=== PATIENT | male | born 2000 | race African-American/Black ===

== ENCOUNTER 2019-06-09 21:36 | Emergency (ER) | payer SELFPAY ==
[2019-06-09] MEDS ORDERED: IBUPROFEN 400 MG TAB ONE (22:36)
[2019-06-09] MEDS ORDERED: NA CHLORIDE 0.9% 1,000 ML ONE (22:36)
[2019-06-09 22:48] LABS: Absolute Lymphocytes (CBC) 3.2 K/uL (0.7-4.9); Basophils % 0.8 % (0-1.3); Hematocrit 43.3 % (39.6-49.0); Lymphocytes % 36.7 % (15.3-44.8); MPV 7.6 fL (7.6-11.3)
[2019-06-09 22:56] LABS: Protime INR 1.16
[2019-06-09 23:14] LABS: ALT/SGPT 44 U/L (12-78); AST/SGOT 26 U/L (15-37); Albumin 3.9 g/dL (3.4-5.0); Alkaline Phosphatase 80 U/L (45-117); BUN Blood Urea Nitrogen 14 mg/dL (7-18); Bicarbonate 28 mmol/L (21-32); Bilirubin Direct 0.1 mg/dL (0-0.2); Bilirubin Total 0.5 mg/dL (0.2-1.0); Glucose Level 80 mg/dL (74-106); Potassium 3.7 mmol/L (3.5-5.1); Protein, Total 8.6 g/dL (6.4-8.2); Sodium Level 140 mmol/L (136-145)
[2019-06-10 01:30] LABS: Urine Blood NEGATIVE (NEG); Urine Glucose NEGATIVE (NEG); Urine Protein NEGATIVE (NEG); Urine Specific Gravity >1.030 (1.005-1.030); Urine pH 6.5 (5.0-7.0)
[2019-06-10 01:32] LABS: Barbiturates NEGATIVE (NEGATIVE); Benzodiazepines NEGATIVE (NEGATIVE); Cocaine NEGATIVE (NEGATIVE); METHAMPHETAM NEGATIVE (NEGATIVE); Methadone NEGATIVE (NEGATIVE); Opiates NEGATIVE (NEGATIVE); Phencyclidine NEGATIVE (NEGATIVE); THC Cannibis NEGATIVE (NEGATIVE)
--- NOTE | 2019-06-10 01:45 | EDPHYS ---
Physician Documentation [facility] Name: Poncho Roque Age: 18 yrs Sex: Male : 2000 Arrival Date: 06/09/2019 Time: 21:38 Bed 18 Private MD: ED Physician Socrates Mustafa HPI: 06/08 23:52 This 18 yrs old Black Male presents to ER via EMS with complaints of Syncope. kdr 23:52 The patient has experienced syncope, became unresponsive, collapsed. Onset: The kdr symptoms/episode began/occurred suddenly, just prior to arrival. Duration: This was a single episode, that lasted an unknown period of time. Context: the episode(s) was witnessed, by co-worker(s), occurred at work, occurred while the patient was working, Just prior to the episode the patient experienced dizziness, weakness, Dry mouth. Associated injury: The patient did not suffer any apparent associated injury. Associated signs and symptoms: Pertinent positives: headache, Photophobia. Current symptoms: headache, that is mild, visual disturbance, Photophobia. The patient has experienced similar episodes in the past, multiple times, The last time was a few years ago - there is a past record of the visit in our EMR. He was discharged with follow-up which he did not do stating that he couldn't afford it.. The patient has not recently seen a physician. Historical: - Allergies: 21:54 SEAFOOD; ah 21:54 Shellfish Containing Products; - Home Meds: 21:54 None [Active]; - PMHx: 21:54 Anxiety; - PSHx: 21:54 None; - Immunization history:: Adult Immunizations unknown, Flu vaccine is not up to date. - Social history:: Smoking status: Patient reports the use of cigarette tobacco products, Reported history of juuling and/or vaping. Patient uses alcohol, street drugs, marijuana. ROS: 23:52 Constitutional: Negative for fever, chills, and weight loss, Eyes: Negative for injury, kdr pain, redness, and discharge, Neck: Negative for injury, pain, and swelling, Cardiovascular: Negative for chest pain, palpitations, and edema, Respiratory: Negative for shortness of breath, cough, wheezing, and pleuritic chest pain, Abdomen/GI: Negative for abdominal pain, nausea, vomiting, diarrhea, and constipation, Back: Negative for injury and pain, : Negative for injury, bleeding, discharge, and swelling, MS/Extremity: Negative for injury and deformity, Skin: Negative for injury, rash, and discoloration, Psych: Negative for depression, anxiety, suicide ideation, homicidal ideation, and hallucinations, Allergy/Immunology: Negative for hives, rash, and allergies, Endocrine: Negative for neck swelling, polydipsia, polyuria, polyphagia, and marked weight changes, Hematologic/Lymphatic: Negative for swollen nodes, abnormal bleeding, and unusual bruising. 23:52 Neuro: Positive for dizziness, headache, loss of consciousness, syncope, weakness, Negative for Exam: 23:52 Constitutional: This is a well developed, well nourished patient who is awake, alert, kdr and in no acute distress. Head/Face: Normocephalic, atraumatic. Eyes: Pupils equal round and reactive to light, extra-ocular motions intact. Lids and lashes normal. Conjunctiva and sclera are non-icteric and not injected. Cornea within normal limits. Periorbital areas with no swelling, redness, or edema. Neck: Trachea midline, no thyromegaly or masses palpated, and no cervical lymphadenopathy. Supple, full range of motion without nuchal rigidity, or vertebral point tenderness. No Meningismus. Chest/axilla: Normal chest wall appearance and motion. Nontender with no deformity. No lesions are appreciated. Cardiovascular: Regular rate and rhythm with a normal S1 and S2. No gallops, murmurs, or rubs. Normal PMI, no JVD. No pulse deficits. Respiratory: Lungs have equal breath sounds bilaterally, clear to auscultation and percussion. No rales, rhonchi or wheezes noted. No increased work of breathing, no retractions or nasal flaring. Abdomen/GI: Soft, non-tender, with normal bowel sounds. No distension or tympany. No guarding or rebound. No evidence of tenderness throughout. Back: No spinal tenderness. No costovertebral tenderness. Full range of motion. Skin: Warm, dry with normal turgor. Normal color with no rashes, no lesions, and no evidence of cellulitis. MS/ Extremity: Pulses equal, no cyanosis. Neurovascular intact. Full, normal range of motion. Neuro: Awake and alert, GCS 15, oriented to person, place, time, and situation. Cranial nerves II-XII grossly intact. Motor strength 5/5 in all extremities. Sensory grossly intact. Cerebellar exam normal. Normal gait. Psych: Awake, alert, with orientation to person, place and time. Behavior, mood, and affect are within normal limits. Vital Signs: 21:39 BP 127 / 55; Pulse 75; Resp 16; Pulse Ox 100% ; Height 5 ft. 11 in. (180.34 cm); Pain ah 9/10; 21:55 Temp 97.1; ah 23:05 BP 129 / 66; Pulse 82; Resp 18; Pulse Ox 100% ; ea 05 00:08 BP 129 / 61; Pulse 64; Resp 18; Pulse Ox 99% on R/A; ea 01:15 BP 120 / 70; Pulse 68; Resp 18; Pulse Ox 99% on R/A; ea MDM: 01:43 Patient medically screened. kdr 03:55 Data reviewed: vital signs, nurses notes, lab test result(s), EKG, radiologic studies. kdr Counseling: I had a detailed discussion with the patient and/or guardian regarding: the historical points, exam findings, and any diagnostic results supporting the discharge/admit diagnosis, lab results, radiology results, the need for outpatient follow up. 06/08 21:50 Order name: Acetaminophen; Complete Time: 23:49 kdr 06/08 21:50 Order name: Basic Metabolic Panel; Complete Time: 23:49 kdr 06/08 21:50 Order name: CBC with Diff; Complete Time: 23:49 kdr 06/08 21:50 Order name: ETOH Level; Complete Time: 23:49 kdr 06/08 21:50 Order name: Hepatic Function; Complete Time: 23:49 kdr 06/08 21:50 Order name: PT-INR; Complete Time: 23:49 kdr 06/08 21:50 Order name: Ptt, Activated; Complete Time: 23:49 kdr 06/08 21:50 Order name: Salicylate; Complete Time: 23:49 kdr 06/08 21:50 Order name: Urine Drug Screen; Complete Time: 01:43 kdr 06/08 22:20 Order name: CT Head C Spine kdr 06/08 23:33 Order name: Abdomen EDMS 06/09 01:20 Order name: Urine Dipstick--Ancillary (enter results); Complete Time: 01:43 mw2 06/08 21:50 Order name: EKG; Complete Time: 21:51 kdr 06/08 21:50 Order name: EKG - Nurse/Tech; Complete Time: 22:50 kdr 06/08 21:50 Order name: IV Saline Lock; Complete Time: 22:28 kdr 06/08 21:50 Order name: Labs collected and sent; Complete Time: 22:28 kdr 06/08 21:50 Order name: Urine Dipstick-Ancillary (obtain specimen); Complete Time: 01:17 kdr Administered Medications: 06/08 22:34 Drug: NS 0.9% 1000 ml Route: IV; Rate: 1 bolus; Site: right antecubital; ea 06/09 01:57 Follow up: Response: No adverse reaction; IV Status: Completed infusion; IV Intake: ea 600ml 06/08 22:34 Drug: Ibuprofen 800 mg Route: PO; ea 06/09 00:28 Follow up: Response: No adverse reaction ea Disposition: 06/10/19 01:43 Discharged to Home. Impression: Syncope and collapse. - Condition is Stable. - Discharge Instructions: Syncope, [id number]. - Medication Reconciliation Form, Thank You Letter form. - Follow up: Private Physician; When: 2 - 3 days; Reason: If symptoms return, Further diagnostic work-up, Recheck today's complaints, Continuance of care, Re-evaluation by your physician. - Problem is an acute exacerbation. - Symptoms are resolved. Signatures: Dispatcher [employer] [facility] Socrates Mustafa MD MD kdr Antunez, Elena, RN RN ea Harris, Amy RN RN Corrections: (The following items were deleted from the chart) 06/08 23:33 22:21 Abdomen Pelvis W Con+CT.RAD.BRZ ordered. [facility] 06/09 01:56 01:43 06/10/2019 01:43 Discharged to Home. Impression: Syncope and collapse. Condition ea is Stable. Forms are Medication Reconciliation Form, Thank You Letter, Antibiotic Education, Prescription Opioid Use. Follow up: Private Physician; When: 2 - 3 days; Reason: If symptoms return, Further diagnostic work-up, Recheck today's complaints, Continuance of care, Re-evaluation by your physician. Problem is an acute exacerbation. Symptoms are resolved. kdr
--- NOTE | 2019-06-10 01:45 | ER ---
Nurse's Notes [facility] Name: Poncho Roque Age: 18 yrs Sex: Male : 2000 Arrival Date: 06/09/2019 Time: 21:38 Bed 18 Private MD: Diagnosis: Syncope and collapse Presentation: 06/08 21:39 Chief complaint: Patient states: he took the trash out at work and smoked a cigarette and when he came back in the building he was dizzy and blacked out. Pt c/o mouth numbness. Vitals per EMS 140/80, 80, 98%, BS 118, afebrile. Coronavirus screen: Proceed with normal triage. Patient denies a cough. Patient denies shortness of breath or difficulty breathing. Patient denies measured and/or subjective temperature greater than 100.4F prior to today's visit. Patient denies travel on a cruise ship or to a country the [facility] currently lists as an affected area. Patient denies contact with known and/or suspected case of COVID-19. Ebola Screen: No symptoms or risks identified at this time. Initial Sepsis Screen: Does the patient meet any 2 criteria? No. Patient's initial sepsis screen is negative. Does the patient have a suspected source of infection? No. Patient's initial sepsis screen is negative. Risk Assessment: Do you want to hurt yourself or someone else? Patient reports no desire to harm self or others. Onset of symptoms was June 09, 2019. 21:39 Method Of Arrival: EMS: [facility] 21:39 Acuity: LEIA 3 Triage Assessment: 21:55 General: Appears. Historical: - Allergies: 21:54 SEAFOOD; 21:54 Shellfish Containing Products; - Home Meds: 21:54 None [Active]; - PMHx: 21:54 Anxiety; - PSHx: 21:54 None; - Immunization history:: Adult Immunizations unknown, Flu vaccine is not up to date. - Social history:: Smoking status: Patient reports the use of cigarette tobacco products, Reported history of juuling and/or vaping. Patient uses alcohol, street drugs, marijuana. Screenin:54 Abuse screen: Denies threats or abuse. Nutritional screening: No deficits noted. Tuberculosis screening: No symptoms or risk factors identified. Fall Risk None identified. Assessment: 22:20 General: Appears in no apparent distress. Pain: Complains of pain in abdomen. Neuro: ea Level of Consciousness is awake, alert, obeys commands, Oriented to person, place, time, situation. Cardiovascular: Patient's skin is warm and dry. Derm: Skin is pink, warm \T\ dry. Musculoskeletal: Circulation, motion, and sensation intact. 23:50 Reassessment: Patient and/or family updated on plan of care and expected duration. Pain ea level reassessed. Patient is alert, oriented x 3, equal unlabored respirations, skin warm/dry/pink. Returned from CT. 06/09 00:30 Reassessment: Patient and/or family updated on plan of care and expected duration. Pain ea level reassessed. Patient is alert, oriented x 3, equal unlabored respirations, skin warm/dry/pink. 01:07 Reassessment: Patient and/or family updated on plan of care and expected duration. Pain ea level reassessed. Patient is alert, oriented x 3, equal unlabored respirations, skin warm/dry/pink. 01:55 Reassessment: Patient and/or family updated on plan of care and expected duration. Pain ea level reassessed. Patient is alert, oriented x 3, equal unlabored respirations, skin warm/dry/pink. Discharge instruction given to patient, verbalized the understanding of instruction. Pt left ED ambulatory accompanied by mother. Vital Signs: 06/08 21:39 BP 127 / 55; Pulse 75; Resp 16; Pulse Ox 100% ; Height 5 ft. 11 in. (180.34 cm); Pain ah 9/10; 21:55 Temp 97.1; ah 23:05 BP 129 / 66; Pulse 82; Resp 18; Pulse Ox 100% ; ea 06/09 00:08 BP 129 / 61; Pulse 64; Resp 18; Pulse Ox 99% on R/A; ea 01:15 BP 120 / 70; Pulse 68; Resp 18; Pulse Ox 99% on R/A; ea ED Course: 06/08 21:38 Patient arrived in ED. cf2 21:48 Socrates Mustafa MD is Attending Physician. kdr 21:52 Triage completed. ah 22:20 Arm band placed on right wrist. Patient placed in an exam room, on a stretcher, on ea pulse oximetry. 22:20 Patient has correct armband on for positive identification. Bed in low position. Call ea light in reach. Side rails up X2. 22:28 Katy Hyde, RN is Primary Nurse. ea 22:28 Inserted saline lock: 22 gauge in right antecubital area, using aseptic technique. ea Blood collected. 23:05 Radiology exam delayed due to lab results not completed at this time. (BUN/Creatinine). kw1 06/09 00:09 CT Head C Spine In Process Unspecified. EDMS 00:19 Abdomen In Process Unspecified. EDMS 01:27 No provider procedures requiring assistance completed. ea 01:50 IV discontinued, intact, bleeding controlled, No redness/swelling at site. Pressure ea dressing applied. Administered Medications: 06/08 22:34 Drug: NS 0.9% 1000 ml Route: IV; Rate: 1 bolus; Site: right antecubital; ea 06/09 01:57 Follow up: Response: No adverse reaction; IV Status: Completed infusion; IV Intake: ea 600ml 06/08 22:34 Drug: Ibuprofen 800 mg Route: PO; ea 06/09 00:28 Follow up: Response: No adverse reaction ea Intake: 01:57 IV: 600ml; Total: 600ml. ea Outcome: 01:43 Discharge ordered by . kdr 01:56 Discharged to home ambulatory, with family. ea 01:56 Condition: stable 01:56 Discharge instructions given to patient, Instructed on discharge instructions, follow up and referral plans. Demonstrated understanding of instructions, follow-up care. 01:56 Patient left the ED. ea Signatures: Dispatcher [employer] Scorates Villalobos MD MD kdr Antunez, Elena, RN RN Jeannette Limon kw1 Bethany Matos cf2 Val Barnes, RN RN
[2019-06-10 02:21] VITALS: TEMP 97.1
[2019-06-10 02:24] VITALS: O2SAT 99
[2019-06-10 02:26] VITALS: BP 120/70
--- NOTE | 2019-06-10 09:44 | EKG ---
Test Date: 2019-06-09 Test Time: 22:47:19 Net Mender: MIL MEASUREMENT RESULTS: Intervals: Rate: 73 LA: 158 QRSD: 96 QT: 378 QTc: 416 Burney: P: 32 LA: 158 QRS: 59 T: 23 INTERPRETIVE STATEMENTS: Normal sinus rhythm Electronically Signed On 06-10-19 09:44:13 CDT by Angel Boyle
--- NOTE | 2019-06-10 11:06 | RAD REPORT ---
EXAM DESCRIPTION: CT - [id number] - 06/10/2019 5:42 am CLINICAL HISTORY: Headache;Pain COMPARISON: None. TECHNIQUE: CT Head and Cervical spine WO contrast on 06/09/2019 10:20 PM CDT This exam was performed according to our departmental dose-optimization program, which includes autom ated exposure control, adjustment of the mA and/or kV according to patient size and/or use of iterati ve reconstruction technique. FINDINGS: Brain: There is no acute hemorrhage, mass effect or midline shift. Cabral-white differentiation is pres erved. There is no hydrocephalus. There is no significant volume loss for age. The calvarium is intact. Orbits and globes are unremarkable. Right frontal sinus is opacified. Mastoi d air cells are clear. Cervical Spine: There is no acute fracture. Alignment is anatomic. Disc spaces are maintained. Vertebral body heights are preserved. Soft tissues are unremarkable. IMPRESSION: No acute postraumatic findings. Electronically signed by: Elmo Glover MD 06/10/2019 12:15 AM CDT Due to temporary technical issues with the PACS/Fluency reporting system, reports are being signed by the in house radiologist as a courtesy to ensure prompt reporting. The interpreting radiologist is f ully responsible for the content of the report.
--- NOTE | 2019-06-10 11:23 | RAD REPORT ---
EXAM DESCRIPTION: CT - Abdomen Pelvis Wo Contrast - 06/10/2019 5:42 am CLINICAL HISTORY: ABD PAIN COMPARISON: None. TECHNIQUE: CT ABDOMEN PELVIS WITHOUT IV CONTRAST on 06/09/2019 10:20 PM CDT This exam was performed according to our departmental dose-optimization program, which includes autom ated exposure control, adjustment of the mA and/or kV according to patient size and/or use of iterati ve reconstruction technique. FINDINGS: Lower lungs are clear. Abdomen: Liver is mildly fatty in attenuation. There is no biliary dilatation. Gallbladder is normal in appearance. The pancreas and spleen are normal in appearance. The adrenal glands and kidneys are u nremarkable. Abdominal aorta is normal in course and caliber without aneurysm. There is no free air. There is no r etroperitoneal adenopathy. Pelvis: There is no bowel obstruction. Urinary bladder is unremarkable. There is no free fluid. Appen shobha is normal. Skeleton: There are no acute osseous findings. No suspicious bony lesions. IMPRESSION: No acute process. Electronically signed by: Elmo Glover MD 06/10/2019 12:24 AM CDT Due to temporary technical issues with the PACS/Fluency reporting system, reports are being signed by the in house radiologist as a courtesy to ensure prompt reporting. The interpreting radiologist is f ully responsible for the content of the report.
== END 2019-06-10 01:56 | disposition home or self-care (01) ==
LOC: ER 21:36
DX: R55 Syncope and collapse (principal); R51 Headache; W19.XXXA Unspecified fall, initial encounter; Y93.89 Activity, other specified; Y92.89 Other specified places as the place of occurrence of the external cause; Y99.8 Other external cause status; F17.210 Nicotine dependence, cigarettes, uncomplicated; Z91.013 Allergy to seafood
CPT/HCPCS: 36415; 70450; 72125; 74176; 80048; 80076; 80307; 80320; 80329; 81003; 85025; 85610; 85730; 93005; 96360; 96361; 99284; J7030

== ENCOUNTER 2019-07-05 14:39 | Emergency (ER) | payer SELFPAY ==
[2019-07-05 16:18] VITALS: BP 128/81; TEMP 98.6; O2SAT 99
--- NOTE | 2019-07-11 13:26 | ER ---
Nurse's Notes [facility] Name: Poncho Roque Age: 18 yrs Sex: Male : 2000 Arrival Date: 07/05/2019 Time: 14:45 Bed 23 Private MD: Diagnosis: Acute pharyngitis Presentation: 07/04 15:04 Chief complaint: Patient states: sore throat X 1 week, no fever, also hands are iw shaking. Coronavirus screen: Proceed with normal triage. Patient denies a cough. Patient denies shortness of breath or difficulty breathing. Patient denies measured and/or subjective temperature greater than 100.4F prior to today's visit. Patient denies travel on a cruise ship or to a country the [facility] currently lists as an affected area. Patient denies contact with known and/or suspected case of COVID-19. Ebola Screen: Patient negative for fever greater than or equal to 101.5 degrees Fahrenheit, and additional compatible Ebola Virus Disease symptoms Patient denies exposure to infectious person. Patient denies travel to an Ebola-affected area in the 21 days before illness onset. No symptoms or risks identified at this time. Initial Sepsis Screen: Does the patient meet any 2 criteria? No. Patient's initial sepsis screen is negative. Does the patient have a suspected source of infection? No. Patient's initial sepsis screen is negative. Risk Assessment: Do you want to hurt yourself or someone else? Patient reports no desire to harm self or others. Onset of symptoms was June 28, 2019. 15:04 Method Of Arrival: Ambulatory iw 15:04 Acuity: LEIA 4 iw Historical: - Allergies: 15:06 SEAFOOD; iw 15:06 Shellfish Containing Products; iw - Home Meds: 15:06 None [Active]; iw - PMHx: 15:06 Anxiety; iw - PSHx: 15:06 None; iw - Immunization history:: Adult Immunizations not up to date. - Social history:: Smoking status: Patient reports the use of cigarette tobacco products, smokes one-half pack cigarettes per day. Vital Signs: 15:04 BP 128 / 81; Pulse 85; Resp 16; Temp 98.6; Pulse Ox 99% on R/A; Weight 108.86 kg; Pain iw 11/18; ED Course: 14:45 Patient arrived in ED. as 15:05 Triage completed. iw 15:06 Arm band placed on. iw 15:28 Neo Garcia NP is PHCP. pm1 15:28 Cesario Rivas MD is Attending Physician. pm1 15:38 Val Barnes, RN is Primary Nurse. Administered Medications: No medications were administered Outcome: 15:46 Discharge ordered by MD. pm1 15:55 Discharged to home ambulatory. 15:55 Condition: good 15:55 Discharge instructions given to patient, Instructed on discharge instructions, follow up and referral plans. Demonstrated understanding of instructions, follow-up care. 15:56 Patient left the ED. Signatures: Cecelia Florian Irene, RN RN Neo Garcia NP [employer] pm1 Val Barnes, RN RN
--- NOTE | 2019-07-11 13:26 | EDPHYS ---
Physician Documentation [facility] Name: Poncho Roque Age: 18 yrs Sex: Male : 2000 Arrival Date: 07/05/2019 Time: 14:45 Bed 23 Private MD: ED Physician Cesairo Rivas HPI: 07/04 15:31 This 18 yrs old Black Male presents to ER via Ambulatory with complaints of Sore Throat.pm1 15:31 The patient presents with sore throat. The patient describes throat pain as scratchy. pm1 Onset: The symptoms/episode began/occurred 1 week(s) ago. Severity of symptoms: in the emergency department the symptoms are unchanged. Modifying factors: The symptoms are alleviated by nothing, the symptoms are aggravated by swallowing, Patient's oral intake status: good unaware of sick contact. Associated signs and symptoms: Pertinent negatives chest pain, cough, earache, fever, flu-like symptoms, headache, sore throat, vomiting. The patient has not recently seen a physician. Patient reports that both his hands were shaking but has resolved. Historical: - Allergies: 15:06 SEAFOOD; iw 15:06 Shellfish Containing Products; iw - Home Meds: 15:06 None [Active]; iw - PMHx: 15:06 Anxiety; iw - PSHx: 15:06 None; iw - Immunization history:: Adult Immunizations not up to date. - Social history:: Smoking status: Patient reports the use of cigarette tobacco products, smokes one-half pack cigarettes per day. ROS: 15:31 Constitutional: Negative for fever, chills, and weight loss, Eyes: Negative for injury, pm1 pain, redness, and discharge. 15:31 Neck: Negative for injury, pain, and swelling, Cardiovascular: Negative for chest pain, palpitations, and edema, Respiratory: Negative for shortness of breath, cough, wheezing, and pleuritic chest pain, Abdomen/GI: Negative for abdominal pain, nausea, vomiting, diarrhea, and constipation, Back: Negative for injury and pain, MS/Extremity: Negative for injury and deformity, Skin: Negative for injury, rash, and discoloration, Neuro: Negative for headache, weakness, numbness, tingling, and seizure, bilateral hand shaking resolved 15:31 ENT: Positive for sore throat, Negative for drainage from ear(s), ear pain, Teeth pain rhinorrhea, sinus congestion, sinus pain, sore throat, dental pain, difficulty swallowing, difficulty handling secretions, hoarseness. Exam: 15:31 Constitutional: This is a well developed, well nourished patient who is awake, alert, pm1 and in no acute distress. Head/Face: Normocephalic, atraumatic. 15:31 Neck: Trachea midline, no thyromegaly or masses palpated, and no cervical lymphadenopathy. Supple, full range of motion without nuchal rigidity, or vertebral point tenderness. No Meningismus. Chest/axilla: Normal chest wall appearance and motion. Nontender with no deformity. No lesions are appreciated. 15:31 Back: No spinal tenderness. No costovertebral tenderness. Full range of motion. Skin: Warm, dry with normal turgor. Normal color with no rashes, no lesions, and no evidence of cellulitis. MS/ Extremity: Pulses equal, no cyanosis. Neurovascular intact. Full, normal range of motion. 15:31 ENT: External ear(s): are unremarkable, Ear canal(s): are normal, TM's: are normal, Nose: is normal, Mouth: is normal, no gum abnomalities, no lip abnormalities, no mucosal abnormalities, no tongue abnormalities, Posterior pharynx: Airway: normal, no evidence of obstruction, patent, Tonsils: bilaterally enlarged, with erythema, erythema, is not appreciated, exudate, is not appreciated, peritonsillar mass, is not appreciated. 15:31 Cardiovascular: Exam negative for acute changes, Rate: normal, Rhythm: regular, Pulses: no pulse deficits are appreciated. 15:31 Respiratory: Exam negative for acute changes, respiratory distress, shortness of breath. 15:31 Abdomen/GI: Exam negative for acute changes, Inspection: abdomen appears normal, Palpation: abdomen is soft and non-tender, in all quadrants, mass, is not appreciated, rebound tenderness, is not appreciated. 15:31 Neuro: Exam negative for acute changes, Orientation: is normal, Mentation: is normal, Motor: is normal, Sensation: is normal, no obvious gross deficits. Vital Signs: 15:04 BP 128 / 81; Pulse 85; Resp 16; Temp 98.6; Pulse Ox 99% on R/A; Weight 108.86 kg; Pain iw 10/10; MDM: 15:28 Patient medically screened. pm1 15:43 ED course: Patient reports both of his hands were shaking at work and his boss thought pm1 that he was having a seizure. Patient offered further evaluation of hand shaking, such as work up for seizure/tremor, but he refused since they stopped shaking. 15:45 Data reviewed: vital signs. Data interpreted: Pulse oximetry: on room air is 99 %. pm1 Interpretation: normal. 15:45 Counseling: I had a detailed discussion with the patient and/or guardian regarding: the pm1 historical points, exam findings, and any diagnostic results supporting the discharge/admit diagnosis, lab results, the need for outpatient follow up, to return to the emergency department if symptoms worsen or persist or if there are any questions or concerns that arise at home. 07/04 15:06 Order name: Strep; Complete Time: 15:45 07/04 15:32 Order name: Throat Culture EDMS Administered Medications: No medications were administered Disposition: 16:21 Co-signature as Attending Physician, Cesario Rivas MD. rn Disposition: 07/05/19 15:46 Discharged to Home. Impression: Acute pharyngitis. - Condition is Stable. - Discharge Instructions: Pharyngitis. - Medication Reconciliation Form, Thank You Letter, Antibiotic Education, Prescription Opioid Use form. - Follow up: Emergency Department; When: As needed; Reason: Worsening of condition. Follow up: Private Physician; When: 2 - 3 days; Reason: Recheck today's complaints, Continuance of care, Re-evaluation by your physician. - Problem is new. - Symptoms have improved. Signatures: Dispatcher [employer] EDMS Albina James RN RN Cesario Rivas MD MD rn Marinas, Patrick, NP [employer] pm1 Val Barnes RN RN Corrections: (The following items were deleted from the chart) 15:56 15:46 07/05/2019 15:46 Discharged to Home. Impression: Acute pharyngitis. Condition is ah Stable. Forms are Medication Reconciliation Form, Thank You Letter, Antibiotic Education, Prescription Opioid Use. Follow up: Emergency Department; When: As needed; Reason: Worsening of condition. Follow up: Private Physician; When: 2 - 3 days; Reason: Recheck today's complaints, Continuance of care, Re-evaluation by your physician. Problem is new. Symptoms have improved. pm1
== END 2019-07-05 15:56 | disposition home or self-care (01) ==
LOC: ER 14:39
DX: J02.9 Acute pharyngitis, unspecified (principal); F17.210 Nicotine dependence, cigarettes, uncomplicated; Z91.013 Allergy to seafood
CPT/HCPCS: 87070; 87081; 99281

== ENCOUNTER 2020-04-02 18:51 | Emergency (ER) | payer SELFPAY ==
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
[2020-04-02] MEDS ORDERED: KETOROLAC 30 MG/ML INJ ONE (20:30)
--- NOTE | 2020-04-02 20:42 | RAD REPORT ---
EXAM DESCRIPTION: RAD - Foot Right 3 View - 04/02/2020 8:30 pm CLINICAL HISTORY: Right foot pain FINDINGS: No fracture or dislocation is seen No radiopaque foreign body visualized
--- NOTE | 2020-04-02 20:47 | ER ---
Nurse's Notes [facility] Name: Poncho Roque Age: 19 yrs Sex: Male : 2000 Arrival Date: 04/02/2020 Time: 18:54 Bed 10 Private MD: Diagnosis: Cellulitis of right lower limb Presentation: 04/02 19:16 Chief complaint: Patient states: Laceration to bottom of Right foot (heel area), ll1 noticed today. States he doesn't know when the laceration happened. No active bleeding. Coronavirus screen: Client denies travel out of the [place] in the last 14 days. At this time, the client does not indicate any symptoms associated with coronavirus-19. Ebola Screen: Patient denies travel to an Ebola-affected area in the 21 days before illness onset. Initial Sepsis Screen: Does the patient meet any 2 criteria? HR > 90 bpm. No. Patient's initial sepsis screen is negative. Does the patient have a suspected source of infection? Yes: Skin breakdown/wound. Risk Assessment: Do you want to hurt yourself or someone else? Patient reports no desire to harm self or others. Onset of symptoms was April 02, 2020. 19:16 Method Of Arrival: Ambulatory ll1 19:16 Acuity: LEIA 4 ll1 Historical: - Allergies: 19:17 SEAFOOD; ll1 19:17 Shellfish Containing Products; ll1 - PMHx: 19:17 Anxiety; ll1 - PSHx: 19:17 None; ll1 - Immunization history:: Last tetanus immunization: unknown, Flu vaccine is not up to date. - Social history:: Smoking status: Patient reports the use of cigarette tobacco products, smokes one-half pack cigarettes per day. Screenin:00 Abuse screen: Denies threats or abuse. Denies injuries from another. Nutritional wh screening: No deficits noted. Tuberculosis screening: No symptoms or risk factors identified. Fall Risk None identified. Assessment: 19:45 General: Appears in no apparent distress. Behavior is calm, cooperative, appropriate wh for age. Pain: Complains of pain in heel of right foot. Neuro: Level of Consciousness is awake, alert, obeys commands, Oriented to person, place, time, situation, Appropriate for age. Cardiovascular: Capillary refill < 3 seconds. Respiratory: Airway is patent Respiratory effort is even, unlabored, Respiratory pattern is regular, symmetrical. GI: Abdomen is flat, non-distended. : No signs and/or symptoms were reported regarding the genitourinary system. EENT: No signs and/or symptoms were reported regarding the EENT system. Derm: Skin is intact, Wound noted heel of right foot. Musculoskeletal: Circulation, motion, and sensation intact. 21:02 Reassessment: Patient appears in no apparent distress at this time. No changes from previously documented assessment. Patient and/or family updated on plan of care and expected duration. Pain level reassessed. Patient is alert, oriented x 3, equal unlabored respirations, skin warm/dry/pink. Vital Signs: 19:16 BP 146 / 91; Pulse 99; Resp 17; Temp 97.9; Pulse Ox 98% ; Weight 90.72 kg; Height 5 ft. ll1 9 in. (175.26 cm); Pain 10/10; 20:30 BP 138 / 88; Pulse 92; Resp 18; Pulse Ox 99% on R/A; wh 19:16 Body Mass Index 29.53 (90.72 kg, 175.26 cm) ll1 ED Course: 18:54 Patient arrived in ED. ds1 19:17 Triage completed. ll1 19:18 Arm band placed on. ll1 19:30 Duncan Boogie MD is Attending Physician. tw4 19:51 Brenda Goodrich, RN is Primary Nurse. 20:00 Patient has correct armband on for positive identification. Bed in low position. Call light in reach. Side rails up X 1. Pulse ox on. NIBP on. 20:30 Foot Right 3 View XRAY In Process Unspecified. EDMS 21:02 No provider procedures requiring assistance completed. Patient did not have IV access during this emergency room visit. Administered Medications: 20:21 Drug: Cleocin 300 mg Route: PO; 21:01 Follow up: Response: No adverse reaction 20:21 Drug: TORadol 60 mg Route: IM; Site: right gluteus; 21:00 Follow up: Response: No adverse reaction; Pain is decreased Outcome: 20:47 Discharge ordered by . tw4 21:02 Discharged to home ambulatory, with crutches. 21:02 Condition: stable 21:02 Discharge instructions given to patient, Instructed on discharge instructions, follow up and referral plans. medication usage, POC Demonstrated understanding of instructions, follow-up care, medications, POC Prescriptions given X 2. 21:03 Patient left the ED. Signatures: Dispatcher [employer] MATTIENM Claribel Nova ds1 Brenda Goodrich, RN RN Duncan Boogie MD MD tw4 Agata Gordon RN RN ll1
--- NOTE | 2020-04-02 20:48 | EDPHYS ---
Physician Documentation [facility] Name: Poncho Roque Age: 19 yrs Sex: Male : 2000 Arrival Date: 04/02/2020 Time: 18:54 Bed 10 Private MD: ED Physician Duncan Boogie HPI: 04/02 20:54 This 19 yrs old Black Male presents to ER via Ambulatory with complaints of Foot tw4 Infection. 20:54 The patient presents with cellulitis of the heel of right foot. Description: tw4 erythematous, warm. Onset: The symptoms/episode began/occurred 1 week(s) ago. Possible cause(s): FB. Associated signs and symptoms: The patient has no apparent associated signs or symptoms. Modifying factors: the symptoms are alleviated by remaining still, the symptoms are aggravated by movement, walking, pressure, squeezing the lesion and expressing the contents. Severity of symptoms: At their worst the symptoms were moderate, in the emergency department the symptoms are unchanged. The patient has not experienced similar symptoms in the past. Historical: - Allergies: 19:17 SEAFOOD; ll1 19:17 Shellfish Containing Products; ll1 - PMHx: 19:17 Anxiety; ll1 - PSHx: 19:17 None; ll1 - Immunization history:: Last tetanus immunization: unknown, Flu vaccine is not up to date. - Social history:: Smoking status: Patient reports the use of cigarette tobacco products, smokes one-half pack cigarettes per day. ROS: 20:54 Constitutional: Negative for fever, chills, and weight loss, Eyes: Negative for injury, tw4 pain, redness, and discharge, Cardiovascular: Negative for chest pain, palpitations, and edema, Respiratory: Negative for shortness of breath, cough, wheezing, and pleuritic chest pain, Abdomen/GI: Negative for abdominal pain, nausea, vomiting, diarrhea, and constipation, Skin: Negative for injury, rash, and discoloration, Neuro: Negative for headache, weakness, numbness, tingling, and seizure. 20:54 MS/extremity: Positive for tenderness. Exam: 20:54 Constitutional: This is a well developed, well nourished patient who is awake, alert, tw4 and in no acute distress. Head/Face: Normocephalic, atraumatic. Chest/axilla: Normal chest wall appearance and motion. Nontender with no deformity. No lesions are appreciated. Cardiovascular: Regular rate and rhythm with a normal S1 and S2. No gallops, murmurs, or rubs. Normal PMI, no JVD. No pulse deficits. Respiratory: Lungs have equal breath sounds bilaterally, clear to auscultation and percussion. No rales, rhonchi or wheezes noted. No increased work of breathing, no retractions or nasal flaring. Abdomen/GI: Soft, non-tender, with normal bowel sounds. No distension or tympany. No guarding or rebound. No evidence of tenderness throughout. Skin: Warm, dry with normal turgor. Normal color with no rashes, no lesions, and no evidence of cellulitis. Neuro: Awake and alert, GCS 15, oriented to person, place, time, and situation. Cranial nerves II-XII grossly intact. Motor strength 5/5 in all extremities. Sensory grossly intact. Cerebellar exam normal. Normal gait. 20:54 Musculoskeletal/extremity: Extremities: noted in the heel of right foot: abrasion, puncture. Vital Signs: 19:16 BP 146 / 91; Pulse 99; Resp 17; Temp 97.9; Pulse Ox 98% ; Weight 90.72 kg; Height 5 ft. ll1 9 in. (175.26 cm); Pain 10/10; 20:30 BP 138 / 88; Pulse 92; Resp 18; Pulse Ox 99% on R/A; wh 19:16 Body Mass Index 29.53 (90.72 kg, 175.26 cm) ll1 MDM: 19:30 Patient medically screened. tw4 20:54 Differential diagnosis: abscess, cellulitis. Data reviewed: vital signs, nurses notes. tw4 Data reviewed: radiologic studies, plain films. Data interpreted: Pulse oximetry: Interpretation: normal. Test interpretation: by ED physician or midlevel provider: plain radiologic studies. Medication response: Response to treatment: the patient's symptoms have markedly improved after treatment, and as a result, I will discharge patient. Special discussion: I discussed with the patient/guardian in detail that at this point there is no indication for admission to the hospital. It is understood, however, that if the symptoms persist or worsen the patient needs to return immediately for re-evaluation. 04/02 20:06 Order name: Foot Right 3 View XRAY tw4 04/02 21:00 Order name: Zoë; Complete Time: 21:00 Administered Medications: 20:21 Drug: Cleocin 300 mg Route: PO; 21:01 Follow up: Response: No adverse reaction 20:21 Drug: TORadol 60 mg Route: IM; Site: right gluteus; 21:00 Follow up: Response: No adverse reaction; Pain is decreased Disposition: 04/02/20 20:47 Discharged to Home. Impression: Cellulitis of right lower limb. - Condition is Stable. - Discharge Instructions: Cellulitis, Adult. - Prescriptions for Cleocin 300 mg Oral Capsule - take 1 capsule by ORAL route every 6 hours for 10 days; 40 capsule. Ibuprofen 800 mg Oral Tablet - take 1 tablet by ORAL route every 8 hours As needed take with food; 30 tablet. - Medication Reconciliation Form, Thank You Letter, Antibiotic Education, Prescription Opioid Use form. - Follow up: Private Physician; When: Upon discharge from the Emergency Department; Reason: Recheck today's complaints, Continuance of care, Re-evaluation by your physician. - Problem is new. - Symptoms have improved. Signatures: Dispatcher [employer] EDMS Brenda Goodrich RN RN Duncan Boogie MD MD tw4 Agata Gordon RN RN ll1 Corrections: (The following items were deleted from the chart) 21:03 20:47 04/02/2020 20:47 Discharged to Home. Impression: Cellulitis of right lower limb. Condition is Stable. Forms are Medication Reconciliation Form, Thank You Letter, Antibiotic Education, Prescription Opioid Use. Follow up: Private Physician; When: Upon discharge from the Emergency Department; Reason: Recheck today's complaints, Continuance of care, Re-evaluation by your physician. Problem is new. Symptoms have improved. tw4
[2020-04-02 22:34] VITALS: TEMP 97.9
[2020-04-02 22:35] VITALS: BP 138/88; O2SAT 99
== END 2020-04-02 21:03 | disposition home or self-care (01) ==
LOC: ER 18:51
DX: L03.115 Cellulitis of right lower limb (principal); F17.210 Nicotine dependence, cigarettes, uncomplicated; Z91.013 Allergy to seafood
CPT/HCPCS: 96372; 99284

== ENCOUNTER 2020-06-08 17:07 | Emergency (ER) | payer SELFPAY ==
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
[2020-06-08 19:15] LABS: SARS-COV-2 RT PCR NEGATIVE (NEGATIVE)
--- NOTE | 2020-06-08 19:21 | ER ---
Nurse's Notes [facility] Name: Poncho Roque Age: 19 yrs Sex: Male : 2000 Arrival Date: 06/08/2020 Time: 17:07 Bed 13 Private MD: Diagnosis: Acute upper respiratory infection, unspecified Presentation: 06/08 17:17 Chief complaint: Body aches, headache, N/D, subjective fever, insomnia, loss of taste hb and smell, and mild SOB x 1 week. Brother has COVID. Coronavirus screen: At this time, the client does not indicate any symptoms associated with coronavirus-19. Ebola Screen: No symptoms or risks identified at this time. Initial Sepsis Screen: Does the patient meet any 2 criteria? No. Patient's initial sepsis screen is negative. Does the patient have a suspected source of infection? No. Patient's initial sepsis screen is negative. Risk Assessment: Do you want to hurt yourself or someone else? Patient reports no desire to harm self or others. Onset of symptoms was May 24, 2020. 17:17 Method Of Arrival: Ambulatory hb 17:17 Acuity: LEIA 4 hb Historical: - Allergies: 17:18 SEAFOOD; hb 17:18 Shellfish Containing Products; hb - Home Meds: 17:18 None [Active]; hb - PMHx: 17:18 Anxiety; hb - PSHx: 17:18 None; hb - Immunization history:: Adult Immunizations up to date. - Social history:: Smoking status: Patient reports the use of cigarette tobacco products, smokes one-half pack cigarettes per day. Screenin:23 Abuse screen: Denies threats or abuse. Denies injuries from another. Nutritional ca1 screening: No deficits noted. Tuberculosis screening: No symptoms or risk factors identified. Fall Risk None identified. Assessment: 17:23 General: Appears in no apparent distress. comfortable, Behavior is calm, cooperative, ca1 appropriate for age. Pain: Complains of pain in scalp Pain currently is 6 out of 10 on a pain scale. Neuro: Level of Consciousness is awake, alert, obeys commands, Oriented to person, place, time, situation. Respiratory: Airway is patent Respiratory effort is even, labored, Respiratory pattern is regular, symmetrical, Breath sounds are clear bilaterally. Derm: Skin is intact, is healthy with good turgor, Skin is pink, warm \\T\\ dry. Musculoskeletal: Circulation, motion, and sensation intact. Capillary refill < 3 seconds. 18:30 Reassessment: Patient appears in no apparent distress at this time. Patient and/or ca1 family updated on plan of care and expected duration. Pain level reassessed. Patient is alert, oriented x 3, equal unlabored respirations, skin warm/dry/pink. 19:10 Reassessment: Patient appears in no apparent distress at this time. Patient and/or ca1 family updated on plan of care and expected duration. Pain level reassessed. Patient is alert, oriented x 3, equal unlabored respirations, skin warm/dry/pink. Vital Signs: 17:17 BP 124 / 78; Pulse 88; Resp 16; Temp 97.4; Pulse Ox 100% on R/A; Pain 10/10; hb 19:10 BP 124 / 72; Pulse 81; Resp 18 S; Pulse Ox 100% on R/A; ca1 ED Course: 17:07 Patient arrived in ED. am2 17:18 Triage completed. hb 17:18 Arm band placed on right wrist. hb 17:21 Keya Loya FNP-C [facility]. kb 17:21 Tariq Ndiaye MD is Attending Physician. kb 17:21 Lorena Gavin RN is Primary Nurse. ca1 17:23 Patient has correct armband on for positive identification. Bed in low position. Call ca1 light in reach. Side rails up X 1. Pulse ox on. NIBP on. Door closed. Noise minimized. Lights dimmed. 17:27 Flu Sent. ca1 17:27 COVID-19 : Document "Date of Symptom Onset" if Symptomatic. Sent. ca1 19:33 No provider procedures requiring assistance completed. Patient did not have IV access ca1 during this emergency room visit. Administered Medications: No medications were administered Outcome: 19:20 Discharge ordered by . kb 19:33 Discharged to home ambulatory. ca1 19:33 Condition: stable 19:33 Discharge instructions given to patient, Instructed on discharge instructions, follow up and referral plans. Demonstrated understanding of instructions, follow-up care. 19:33 Patient left the ED. ca1 Signatures: Keya Loya FNP-C FNP-Fern Rowe RN RN Lola Laird am2 Acob, Lorena, RN RN ca1
--- NOTE | 2020-06-08 19:21 | EDPHYS ---
Physician Documentation [facility] Name: Poncho Roque Age: 19 yrs Sex: Male : 2000 Arrival Date: 06/08/2020 Time: 17:07 Bed 13 Private MD: ED Physician Tariq Ndiaye HPI: 06/08 19:19 This 19 yrs old Black Male presents to ER via Ambulatory with complaints of Headache, kb Cough, Bodyaches, Breathing Difficulty. 19:19 The patient or guardian reports cough, difficulty breathing. Onset: The kb symptoms/episode began/occurred 1 week(s) ago. Severity of symptoms: At their worst the symptoms were moderate, in the emergency department the symptoms are unchanged. Modifying factors: The symptoms are alleviated by nothing, the symptoms are aggravated by nothing. Associated signs and symptoms: The patient has no apparent associated signs or symptoms. The patient has not experienced similar symptoms in the past. The patient has not recently seen a physician. Pt reports cough, dyspnea, bodyaches, malaise, and insomnia for 1 week. Brother that lives in the same home is covid positive. Historical: - Allergies: 17:18 SEAFOOD; hb 17:18 Shellfish Containing Products; hb - Home Meds: 17:18 None [Active]; hb - PMHx: 17:18 Anxiety; hb - PSHx: 17:18 None; hb - Immunization history:: Adult Immunizations up to date. - Social history:: Smoking status: Patient reports the use of cigarette tobacco products, smokes one-half pack cigarettes per day. ROS: 19:18 Cardiovascular: Negative for chest pain, palpitations, and edema, Abdomen/GI: Negative kb for abdominal pain, nausea, vomiting, diarrhea, and constipation, MS/Extremity: Negative for injury and deformity, Skin: Negative for injury, rash, and discoloration, Neuro: Negative for headache, weakness, numbness, tingling, and seizure. 19:18 Constitutional: Positive for body aches, chills, fatigue, malaise. 19:18 Respiratory: Positive for cough, shortness of breath. Exam: 19:19 Constitutional: This is a well developed, well nourished patient who is awake, alert, kb and in no acute distress. Head/Face: Normocephalic, atraumatic. Cardiovascular: Regular rate and rhythm with a normal S1 and S2. No gallops, murmurs, or rubs. No pulse deficits. Respiratory: Respirations even and unlabored. No increased work of breathing, no retractions or nasal flaring. Abdomen/GI: Soft, non-tender. No distention Skin: Warm, dry with normal turgor. Normal color. MS/ Extremity: Pulses equal, no cyanosis. Neurovascular intact. Full, normal range of motion. Neuro: Awake and alert, GCS 15, oriented to person, place, time, and situation. Moves all extremities. Normal gait. Vital Signs: 17:17 BP 124 / 78; Pulse 88; Resp 16; Temp 97.4; Pulse Ox 100% on R/A; Pain 10/10; hb 19:10 BP 124 / 72; Pulse 81; Resp 18 S; Pulse Ox 100% on R/A; ca1 MDM: 17:21 Patient medically screened. kb 19:19 Data reviewed: vital signs, nurses notes. Data interpreted: Pulse oximetry: on room air kb is 100 %. Interpretation: normal. Counseling: I had a detailed discussion with the patient and/or guardian regarding: the historical points, exam findings, and any diagnostic results supporting the discharge/admit diagnosis, lab results, the need for outpatient follow up, a family practitioner, to return to the emergency department if symptoms worsen or persist or if there are any questions or concerns that arise at home. 06/08 17:24 Order name: Flu kb 06/08 17:24 Order name: COVID-19 : Document "Date of Symptom Onset" if Symptomatic. kb 06/08 19:16 Order name: COVID-19/FLU A+B; Complete Time: 19:18 EDMS Administered Medications: No medications were administered Disposition: 06/09 08:02 Co-signature as Attending Physician, Tariq Ndiaye MD I agree with the assessment and leta plan of care. Disposition: 06/08/20 19:20 Discharged to Home. Impression: Acute upper respiratory infection, unspecified. - Condition is Stable. - Discharge Instructions: Upper Respiratory Infection, Adult, [id number], Viral Respiratory Infection, [id number]. - Medication Reconciliation Form, Thank You Letter, Antibiotic Education, Prescription Opioid Use form. - Follow up: Emergency Department; When: As needed; Reason: Worsening of condition. Follow up: Private Physician; When: 2 - 3 days; Reason: Recheck today's complaints, Continuance of care, Re-evaluation by your physician. Signatures: Dispatcher [employer] Keya Thompson, CHICKEN VACCINATOR-Georgette ELKINS-Tariq Contreras MD MD cha Baxter, Heather, RN RN hb Lorena Gavin RN RN ca1 Corrections: (The following items were deleted from the chart) 06/08 19:20 19:20 06/08/2020 19:20 Discharged to Home. Impression: Coronavirus infection, kb unspecified. Condition is Stable. Forms are Medication Reconciliation Form, Thank You Letter, Antibiotic Education, Prescription Opioid Use. Follow up: Emergency Department; When: As needed; Reason: Worsening of condition. Follow up: Private Physician; When: 2 - 3 days; Reason: Recheck today's complaints, Continuance of care, Re-evaluation by your physician. kb 19:33 19:20 06/08/2020 19:20 Discharged to Home. Impression: Acute upper respiratory ca1 infection, unspecified. Condition is Stable. Discharge Instructions: Viral Respiratory Infection, Ccoe-Xa-Tbai. Forms are Medication Reconciliation Form, Thank You Letter, Antibiotic Education, Prescription Opioid Use. Follow up: Emergency Department; When: As needed; Reason: Worsening of condition. Follow up: Private Physician; When: 2 - 3 days; Reason: Recheck today's complaints, Continuance of care, Re-evaluation by your physician. kb
[2020-06-08 19:40] VITALS: TEMP 97.4; O2SAT 100
[2020-06-08 19:41] VITALS: BP 124/72
== END 2020-06-08 19:33 | disposition home or self-care (01) ==
LOC: ER 17:07
DX: J06.9 Acute upper respiratory infection, unspecified (principal); Z20.822 Contact with and (suspected) exposure to COVID-19; F17.210 Nicotine dependence, cigarettes, uncomplicated; F41.9 Anxiety disorder, unspecified
CPT/HCPCS: 0240U; 99283

== ENCOUNTER 2021-01-17 09:40 | Emergency (ER) | payer SELFPAY ==
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
--- NOTE | 2021-01-17 10:08 | EDPHYS ---
Physician Documentation [facility] Name: Poncho Roque Age: 20 yrs Sex: Male : 2000 Arrival Date: 01/17/2021 Time: 09:48 Bed Waiting Private MD: ED Physician Lan Dickey HPI: 01/17 10:05 This 20 yrs old Black Male presents to ER via Ambulatory with complaints of Breathing jmm Difficulty. 10:05 The patient has shortness of breath at rest. Onset: The symptoms/episode began/occurred jmm today. The patient's shortness of breath is aggravated by nothing, is alleviated by nothing. 20-year-old male with history of anxiety the presents emerge department with complaints of sinus congestion which began this morning. Patient denies fever or sore throat or cough.. Historical: - Allergies: 09:57 SEAFOOD; jl7 09:57 Shellfish Containing Products; jl7 - Home Meds: 09:57 None [Active]; jl7 - PMHx: 09:57 Anxiety; jl7 - PSHx: 09:57 None; jl7 - Immunization history:: Adult Immunizations not up to date. - Social history:: Smoking status: Patient reports the use of cigarette tobacco products, smokes one-half pack cigarettes per day. ROS: 10:05 Constitutional: Negative for fever, chills, and weight loss. jmm 10:05 Respiratory: Negative for shortness of breath, cough, wheezing, and pleuritic chest pain, Abdomen/GI: Negative for abdominal pain, nausea, vomiting, diarrhea, and constipation. 10:05 ENT: Positive for sinus congestion. 10:05 All other systems are negative. Exam: 10:05 Constitutional: This is a well developed, well nourished patient who is awake, alert, jmm and in no acute distress. Head/Face: atraumatic. Eyes: EOMI, no conjunctival erythema appreciated 10:05 Neck: Trachea midline, Supple Chest/axilla: Normal chest wall appearance and motion. Cardiovascular: Regular rate and rhythm. No edema appreciated Respiratory: Normal respirations, no respiratory distress appreciated Abdomen/GI: Non distended, soft Back: Normal ROM Skin: General appearance color normal 10:05 Head/face: Sinus tenderness, that is mild, is located over the right frontal sinus, left frontal sinus, right ethmoid sinus, left ethmoid sinus, right maxillary sinus and left maxillary sinus. 10:05 Musculoskeletal/extremity: ROM: intact in all extremities. 10:05 Skin: Appearance: Color: normal in color. 10:05 Neuro: Motor: is normal. 10:05 Psych: Behavior/mood is pleasant, cooperative. Vital Signs: 09:55 BP 120 / 73; Pulse 66; Resp 19; Temp 97.3; Pulse Ox 99% ; Weight 86.18 kg; Height 5 ft. jl7 11 in. (180.34 cm); Pain 0/10; 09:55 Body Mass Index 26.50 (86.18 kg, 180.34 cm) jl7 MDM: 10:05 Patient medically screened. [facility] 10:05 Data reviewed: vital signs, nurses notes. Counseling: I had a detailed discussion with meliton the patient and/or guardian regarding: the historical points, exam findings, and any diagnostic results supporting the discharge/admit diagnosis, the need for outpatient follow up, to return to the emergency department if symptoms worsen or persist or if there are any questions or concerns that arise at home. ED course: Patient is alert nontoxic in appearance NAD. Vital signs are normal. Patient advised follow-up PCP and otherwise given strict return precautions. Patient understood agrees plan of care.. Administered Medications: No medications were administered Disposition: 01/18 07:46 Co-signature as Attending Physician, Lan Dickey MD I agree with the assessment and sp3 plan of care. Disposition Summary: 01/17/21 10:08 Discharge Ordered Location: Home [facility] Condition: Stable [facility] Diagnosis - Other acute sinusitis [facility] Followup: [facility] - With: Private Physician - When: 2 - 3 days - Reason: Recheck today's complaints, Continuance of care, Re-evaluation by your physician Discharge Instructions: - Discharge Summary Sheet [facility] - Sinusitis, Adult [facility] Forms: - Medication Reconciliation Form [facility] - Thank You Letter [facility] - Antibiotic Education [facility] - Prescription Opioid Use [facility] Prescriptions: - Medrol (Donavan) 4 mg Oral Tablets, Dose Pack - take 1 tablet by ORAL route as directed - follow package instructions; 1 [facility] packet; Refills: 0, Product Selection Permitted Signatures: Glen Gillis PA PA jmm Leal, Jahala, RN RN jl7 Dickey, Setul, MD MD sp3
--- NOTE | 2021-01-17 10:08 | ER ---
Nurse's Notes [facility] Name: Poncho Roque Age: 20 yrs Sex: Male : 2000 Arrival Date: 01/17/2021 Time: 09:48 Bed Waiting Private MD: Diagnosis: Other acute sinusitis Presentation: 01/17 09:55 Chief complaint: Patient states: Nasal congestion "for years" and it's hard to breathe jl7 through my nose. Coronavirus screen: congestion, Client presents with at least one sign or symptom that may indicate coronavirus-19. Standard/surgical mask placed on the client. Provider contacted for isolation considerations. Ebola Screen: No symptoms or risks identified at this time. Initial Sepsis Screen: Does the patient meet any 2 criteria? No. Patient's initial sepsis screen is negative. Does the patient have a suspected source of infection? No. Patient's initial sepsis screen is negative. Risk Assessment: Do you want to hurt yourself or someone else? Patient reports no desire to harm self or others. Onset of symptoms is unknown. 09:55 Method Of Arrival: Ambulatory jl7 09:55 Acuity: LEIA 4 jl7 Triage Assessment: 09:57 General: Appears in no apparent distress. uncomfortable, Behavior is calm, cooperative. jl7 Pain: Denies pain. Respiratory: Reports nasal congestion Onset: The symptoms/episode began/occurred at an unknown time. the patient has mild shortness of breath. Historical: - Allergies: 09:57 SEAFOOD; jl7 09:57 Shellfish Containing Products; jl7 - Home Meds: 09:57 None [Active]; jl7 - PMHx: 09:57 Anxiety; jl7 - PSHx: 09:57 None; jl7 - Immunization history:: Adult Immunizations not up to date. - Social history:: Smoking status: Patient reports the use of cigarette tobacco products, smokes one-half pack cigarettes per day. Screenin:00 Abuse screen: Denies threats or abuse. Denies injuries from another. Nutritional jl7 screening: No deficits noted. Tuberculosis screening: No symptoms or risk factors identified. Fall Risk None identified. Assessment: 10:00 General: See triage. Cardiovascular: Rhythm is regular. Respiratory: Airway is patent jl7 Respiratory effort is even, unlabored, Respiratory pattern is regular, symmetrical, Breath sounds are clear bilaterally. 10:03 Reassessment: JOHANA Carroll in triage assessing pt. jl7 Vital Signs: 09:55 BP 120 / 73; Pulse 66; Resp 19; Temp 97.3; Pulse Ox 99% ; Weight 86.18 kg; Height 5 ft. jl7 11 in. (180.34 cm); Pain 0/10; 09:55 Body Mass Index 26.50 (86.18 kg, 180.34 cm) jl7 ED Course: 09:48 Patient arrived in ED. ds1 09:50 Glen Gillis PA is PHCP. [facility] 09:51 Lan Dickey MD is Attending Physician. [facility] 09:56 Triage completed. jl7 09:57 Arm band placed on right wrist. Patient placed in waiting room, Patient notified of jl7 wait time. 10:00 Patient has correct armband on for positive identification. jl7 10:00 No provider procedures requiring assistance completed. Patient did not have IV access jl7 during this emergency room visit. Administered Medications: No medications were administered Outcome: 10:08 Discharge ordered by . [facility] 10:21 Discharged to home ambulatory. jl7 10:21 Condition: stable 10:21 Discharge instructions given to patient, Instructed on discharge instructions, follow up and referral plans. medication usage, Demonstrated understanding of instructions, follow-up care, medications, Prescriptions given X 1. 10:22 Patient left the ED. jl7 Signatures: Glen Gillis PA PA jmm Sanford, Demi ds1 Ovidio Weaver, RN RN jl7
[2021-01-17 10:42] VITALS: BP 120/73; TEMP 97.3; O2SAT 99
== END 2021-01-17 10:22 | disposition home or self-care (01) ==
LOC: ER 09:40
DX: J01.80 Other acute sinusitis (principal); F17.210 Nicotine dependence, cigarettes, uncomplicated; Z91.013 Allergy to seafood
CPT/HCPCS: 99282

== ENCOUNTER 2021-05-24 00:23 | Emergency (ER) | payer SELFPAY ==
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
[2021-05-24] MEDS ORDERED: ONDANSETRON 4 MG/2 ML VIAL ONE (00:36)
[2021-05-24] MEDS ORDERED: FAMOTIDINE 20 MG/2 ML VIAL IV ONE (00:36)
[2021-05-24] MEDS ORDERED: NA CHLORIDE 0.9% 1,000 ML ONE (00:42)
[2021-05-24] MEDS ORDERED: DIPHENHYDRAMINE 50 MG/ML VIAL ONE (00:42)
[2021-05-24 01:24] LABS: Absolute Lymphocytes (CBC) 3.1 K/uL (0.7-4.9); Hematocrit 39.3 % (39.6-49.0); Lymphocytes % 37.6 % (15.3-44.8); MPV 7.3 fL (7.6-11.3); RBC Red Blood Cell Count 4.39 M/uL (4.33-5.43)
[2021-05-24 01:33] LABS: ALT/SGPT 35 U/L (12-78); AST/SGOT 28 U/L (15-37); Albumin 3.3 g/dL (3.4-5.0); Alkaline Phosphatase 74 U/L (45-117); BUN Blood Urea Nitrogen 9 mg/dL (7-18); Bicarbonate 27 mmol/L (21-32); Bilirubin Total 0.5 mg/dL (0.2-1.0); Glucose Level 96 mg/dL (74-106); Potassium 4.2 mmol/L (3.5-5.1); Protein, Total 7.4 g/dL (6.4-8.2); Sodium Level 143 mmol/L (136-145)
[2021-05-24 01:45] LABS: Urine Blood Negative (Negative); Urine Glucose Negative (Negative); Urine Protein Negative (Negative)
[2021-05-24 01:59] LABS: Barbiturates NEGATIVE (NEGATIVE); Benzodiazepines NEGATIVE (NEGATIVE); Cocaine NEGATIVE (NEGATIVE); METHAMPHETAM NEGATIVE (NEGATIVE); Methadone NEGATIVE (NEGATIVE); Opiates NEGATIVE (NEGATIVE); Phencyclidine NEGATIVE (NEGATIVE); THC Cannibis NEGATIVE (NEGATIVE)
--- NOTE | 2021-05-24 04:06 | EDPHYS ---
Physician Documentation [facility] Name: Poncho Roque Age: 20 yrs Sex: Male : 2000 Arrival Date: 05/24/2021 Time: 00:26 Bed 2 Private MD: ED Physician Socrates Mustafa HPI: 05/24 05:33 This 20 yrs old Black Male presents to ER via EMS with complaints of Allergic Reaction. kdr 05:33 EMS was called to respond to the patient who was reported to be choking at home. kdr Patient is known to the service and to the facility here for his allergies to shellfish. The patient may have been opening a seasoning packet that contained a seafood seasoning. In any case on EMS arrival, the patient was obtunded and choking. They indicated that they help clear some food boluses and patient's status quickly improved. On arrival in the ED, he was more awake though still having some difficulty speaking. Steadily improved with the interventions given in the ED. He had no further complaint other than a persistent burning in his eyes. There was no obvious reason for this beyond continued irritation from the seasoning packet which was powder and had been opened in close proximity to his face.. 05:33 The patient presents with difficulty swallowing, hoarse voice, rash, redness of skin, kdr shortness of breath, vomiting. Onset: The symptoms/episode began/occurred suddenly, just prior to arrival. Associated signs and symptoms: The patient has no apparent associated signs or symptoms. Possible causes: shellfish. At home the patient or guardian has treated the symptoms with Benadryl, steroids. Severity of symptoms: At their worst the symptoms were mild. The patient has not experienced similar symptoms in the past. The patient has not recently seen a physician. Historical: - Allergies: 00:46 Shellfish Containing Products; vc1 00:46 SEAFOOD; vc1 - Home Meds: 00:46 None [Active]; vc1 - PMHx: 00:58 Anxiety; lg3 - Immunization history:: Adult Immunizations up to date, Client reports receiving the 2nd dose of the Covid vaccine. - Social history:: Smoking status: unknown. ROS: 05:33 Constitutional: Negative for fever, chills, and weight loss, Eyes: Negative for injury, kdr pain, redness, and discharge, Neck: Negative for injury, pain, and swelling, Cardiovascular: Negative for chest pain, palpitations, and edema, Abdomen/GI: Negative for abdominal pain, nausea, vomiting, diarrhea, and constipation, Back: Negative for injury and pain, : Negative for injury, bleeding, discharge, and swelling, MS/Extremity: Negative for injury and deformity, Skin: Negative for injury, rash, and discoloration, Neuro: Negative for headache, weakness, numbness, tingling, and seizure activity. Psych: Negative for depression, anxiety, suicide ideation, homicidal ideation, and hallucinations, Allergy/Immunology: Negative for hives, rash, and allergies, Endocrine: Negative for neck swelling, polydipsia, polyuria, polyphagia, and marked weight changes, Hematologic/Lymphatic: Negative for swollen nodes, abnormal bleeding, and unusual bruising. 05:33 Respiratory: Positive for cough, shortness of breath. Exam: 05:33 Constitutional: This is a well developed, well nourished patient who is awake, alert, kdr and in no acute distress. Head/Face: Normocephalic, atraumatic. Eyes: Pupils equal round and reactive to light, extra-ocular motions intact. Lids and lashes normal. Conjunctiva and sclera are non-icteric and not injected. Cornea within normal limits. Periorbital areas with no swelling, redness, or edema. Neck: Trachea midline, no thyromegaly or masses palpated, and no cervical lymphadenopathy. Supple, full range of motion without nuchal rigidity, or vertebral point tenderness. No Meningismus. Chest/axilla: Normal chest wall appearance and motion. Nontender with no deformity. No lesions are appreciated. Cardiovascular: Regular rate and rhythm with a normal S1 and S2. No gallops, murmurs, or rubs. Normal PMI, no JVD. No pulse deficits. Respiratory: Lungs have equal breath sounds bilaterally, clear to auscultation and percussion. No rales, rhonchi or wheezes noted. No increased work of breathing, no retractions or nasal flaring. Abdomen/GI: Soft, non-tender, with normal bowel sounds. No distension or tympany. No guarding or rebound. No evidence of tenderness throughout. Back: No spinal tenderness. No costovertebral tenderness. Full range of motion. Skin: Warm, dry with normal turgor. Normal color with no rashes, no lesions, and no evidence of cellulitis. MS/ Extremity: Pulses equal, no cyanosis. Neurovascular intact. Full, normal range of motion. Psych: Awake, alert, with orientation to person, place and time. Behavior, mood, and affect are within normal limits. 05:33 Neuro: Orientation: is normal, Mentation: lucid, slow to respond, Motor: moves all fours. Vital Signs: 00:52 BP 154 / 82; Pulse 86; Resp 20; Pulse Ox 100% on R/A; lg3 01:46 BP 130 / 67; Pulse 78; Resp 21 S; Pulse Ox 99% on R/A; lg3 03:01 BP 102 / 53; Pulse 84; Resp 19 S; Pulse Ox 100% on R/A; lg3 04:37 BP 113 / 56; Pulse 69; Resp 20 S; Pulse Ox 100% on R/A; lg3 MDM: 04:05 Patient medically screened. kdr 04:09 ED course: Removal read of the CT soft tissue neck, did not identify any acute to the kdr patency of the airway.. 04:12 Data reviewed: vital signs, nurses notes. ED course: The chest x-ray remote read kdr indicated no acute findings. 05:33 ED course: Patient steadily improved in the ED. His symptoms largely resolved. He had kdr no other complaints other than a persistent but mild and improving burning sensation to his eyes. He was discharged in good condition happy with the care rendered plan for discharge and follow-up. 05/24 00:33 Order name: CBC with Diff; Complete Time: 01:42 kdr 05/24 00:33 Order name: CMP; Complete Time: 01:42 kdr 05/24 00:33 Order name: CXR XRAY kdr 05/24 00:34 Order name: UDS kdr 05/24 00:34 Order name: ETOH Level; Complete Time: 01:42 kdr 05/24 01:45 Order name: Urine Dipstick-Ancillary EDMS 05/24 00:38 Order name: CT Soft Tissue Neck W/contr kdr Administered Medications: 00:38 Drug: NS 0.9% 1000 ml Route: IV; Rate: 1 bolus; Site: left antecubital; ll3 04:39 Follow up: Response: No adverse reaction; IV Status: Completed infusion; IV Intake: lg3 1000ml 00:38 Drug: Zofran (Ondansetron) 4 mg Route: IVP; Site: left antecubital; ll3 00:43 Follow up: Response: No adverse reaction lg3 00:38 Drug: Pepcid (famotidine) 20 mg Route: IVP; Site: left antecubital; ll3 00:43 Follow up: Response: No adverse reaction lg3 00:39 Drug: Benadryl (diphenhydrAMINE) 50 mg Route: IVP; Site: left antecubital; ll3 00:43 Follow up: Response: No adverse reaction lg3 Disposition Summary: 05/24/21 04:05 Discharge Ordered Location: Home kdr Problem: an acute exacerbation kdr Symptoms: have improved kdr Condition: Stable kdr Diagnosis - Acute allergic reaction -shellfish/shrimp kdr Followup: kdr - With: Private Physician - When: 2 - 3 days - Reason: If symptoms return, Further diagnostic work-up, Recheck today's complaints, Continuance of care, Re-evaluation by your physician Discharge Instructions: - Discharge Summary Sheet kdr - Allergies, Adult, [id number] kdr Forms: - Medication Reconciliation Form kdr - Thank You Letter kdr Prescriptions: - Benadryl 25 mg Oral Capsule - take 1 capsule by ORAL route every 6 hours As needed; 30 tablet; Refills: 0, kdr Product Selection Permitted - Medrol (Donavan) 4 mg Oral Tablets, Dose Pack - take 1 tablet by ORAL route as directed - follow package instructions; 1 kdr packet; Refills: 0, Product Selection Permitted - Pepcid 20 mg Oral Tablet - take 1 tablet by ORAL route every 12 hours for 5 days; 10 tablet; Refills: 0, kdr Product Selection Permitted Signatures: Dispatcher [employer] Socrates Villalobos MD MD kdr Max Pierce, TUMBLER OPERATOR-C TUMBLER OPERATOR-Cla1 Janie James, RN RN lg3 Mandy Byrd, RN RN ll3 Yokasta Khan, RN RN vc1
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
[2021-05-24 12:14] VITALS: O2SAT 100
[2021-05-24 12:16] VITALS: BP 113/56
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
== END 2021-05-24 04:38 | disposition home or self-care (01) ==
LOC: ER 00:23
DX: R05.9 Cough, unspecified (principal); R06.02 Shortness of breath; Z91.013 Allergy to seafood
CPT/HCPCS: 36415; 70491; 71045; 80053; 80307; 80320; 81003; 85025; 96361; 96374; 96375; 99284; J1200; J2405; J7030; Q9967

== ENCOUNTER 2021-05-25 | Emergency (ER) | payer SELFPAY ==
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
[2021-05-25] MEDS ORDERED: DERMABOND SKIN ADHESIVE TOP ONE (00:26)
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
[2021-05-25 02:59] VITALS: BP 134/84; O2SAT 100
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
== END 2021-05-25 01:52 | disposition home or self-care (01) ==
LOC: ER
PROC: 0JQQ0ZZ Repair Right Foot Subcutaneous Tissue and Fascia, Open Approach (ICD-10-PCS; principal; 2021-05-25)
DX: S91.114A Laceration without foreign body of right lesser toe(s) without damage to nail, initial encounter (principal); S90.122A Contusion of left lesser toe(s) without damage to nail, initial encounter; W22.03XA Walked into furniture, initial encounter; Z91.013 Allergy to seafood
CPT/HCPCS: 99282

== ENCOUNTER 2021-10-06 22:48 | Emergency (ER) | payer SELFPAY ==
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
[2021-10-07 00:03] LABS: Urine Blood Negative (Negative); Urine Glucose Negative (Negative); Urine Protein Negative (Negative); Urine Specific Gravity >=1.030 (1.005-1.030); Urine pH 6.5 (5.0-7.0)
[2021-10-07 00:10] LABS: Absolute Lymphocytes (CBC) 2.4 K/uL (0.7-4.9); Lymphocytes % 45.3 % (15.3-44.8); MPV 6.7 fL (7.6-11.3); RBC Red Blood Cell Count 4.48 M/uL (4.33-5.43)
[2021-10-07 00:18] LABS: Barbiturates NEGATIVE (NEGATIVE); Benzodiazepines NEGATIVE (NEGATIVE); Cocaine NEGATIVE (NEGATIVE); METHAMPHETAM NEGATIVE (NEGATIVE); Methadone NEGATIVE (NEGATIVE); Opiates NEGATIVE (NEGATIVE); Phencyclidine NEGATIVE (NEGATIVE); THC Cannibis NEGATIVE (NEGATIVE)
[2021-10-07 00:35] LABS: ALT/SGPT 69 U/L (12-78); AST/SGOT 36 U/L (15-37); Albumin 3.5 g/dL (3.4-5.0); Alkaline Phosphatase 73 U/L (45-117); BUN Blood Urea Nitrogen 9 mg/dL (7-18); Bicarbonate 29 mmol/L (21-32); Bilirubin Total 0.5 mg/dL (0.2-1.0); Glomerular Filtration Rate 93 ml/min (=/>90); Glucose Level 127 mg/dL (74-106); Potassium 3.4 mmol/L (3.5-5.1); Protein, Total 7.6 g/dL (6.4-8.2); Sodium Level 142 mmol/L (136-145)
[2021-10-07 00:37] LABS: Bilirubin Direct < 0.1 mg/dL (0-0.2)
--- NOTE | 2021-10-07 00:51 | ER ---
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 Upon arrival pt was unresponsive, wheezing, diffuse hives noted. 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 Coronavirus screen: At this time, the client does not indicate any symptoms associated with coronavirus-19. Ebola Screen: No symptoms or risks identified at this time. Initial Sepsis Screen: Does the patient meet any 2 criteria? No. Patient's initial sepsis screen is negative. Does the patient have a suspected source of infection? No. Patient's initial sepsis screen is negative. Risk Assessment: Do you want to hurt yourself or someone else? Patient reports no desire to harm self or others. Onset of symptoms was October 06, 2021. 22:50 Method Of Arrival: EMS: [facility] 22:50 Acuity: LEIA 2 hb 22:54 Coronavirus screen: Vaccine status: Patient reports receiving the 2nd dose of the covid tw5 vaccine. doesn't recall brand. 10/07 01:13 Anaphylaxis evaluation, no signs or symptoms of anaphylaxis were noted. tw5 Triage Assessment: 01:13 General: Appears in no apparent distress. Behavior is drowsy. tw5 Historical: - Allergies: 10/06 22:55 SEAFOOD; hb 22:55 Shellfish Containing Products; hb - Home Meds: 22:55 epi pen [Active]; hb - PMHx: 22:55 Anxiety; hb - Immunization history:: Flu vaccine is not up to date. - Social history:: Smoking status: Patient reports the use of cigarette tobacco products, smokes one-half pack cigarettes per day, Reported history of juuling and/or vaping. Patient/guardian denies using alcohol, street drugs. Screenin:46 Abuse screen: Denies threats or abuse. Denies injuries from another. Nutritional hb screening: No deficits noted. Tuberculosis screening: No symptoms or risk factors identified. Fall Risk None identified. Assessment: 22:52 General: Appears in no apparent distress. Behavior is drowsy. General: Reports Throat tw5 slightly itchy. Pain: Denies pain. Neuro: Level of Consciousness is awake, alert, obeys commands, Oriented to person, place, time, situation. Cardiovascular: Heart tones S1 S2 present. Respiratory: Airway is patent Trachea midline Respiratory effort is even, unlabored, Breath sounds are clear bilaterally. Derm: Skin is intact. 23:56 General: Behavior is drowsy. tw5 Vital Signs: 22:50 Pulse 87; Resp 21; Pulse Ox 99% on R/A; Weight 97 kg; Pain 0/10; hb 23:30 BP 106 / 54; Pulse 72; Resp 20; Pulse Ox 98% on R/A; hb 23:56 BP 95 / 60; Pulse 76; Resp 18; Pulse Ox 100% on R/A; tw5 ED Course: 22:49 Patient arrived in ED. hb 22:52 Alondra Snyder is Primary Nurse. tw5 22:55 Triage completed. hb 22:55 Arm band placed on. hb 22:58 Socrates Mustafa MD is Attending Physician. kdr 23:46 Patient has correct armband on for positive identification. hb 23:46 Maintain EMS IV. Dressing intact. Good blood return noted. Site clean \T\ dry. Gauge \T\ hb site: 20g LAC. 23:56 Client placed on continuous cardiac and pulse oximetry monitoring. NIBP monitoring tw5 applied. Door closed. Noise minimized. Lights dimmed. 23:56 CBC with Diff Sent. tw5 23:56 ETOH Level Sent. tw5 23:56 Hepatic Function Sent. tw5 23:56 Salicylate Sent. tw5 23:56 Urine Drug Screen Sent. tw5 23:56 Initial lab(s) drawn, by me, sent to lab. Urine collected: clean catch specimen. tw10/07 00:08 Urine Dipstick-Ancillary Sent. tw5 00:16 CT Head Brain wo Cont In Process Unspecified. EDMS 01:13 No provider procedures requiring assistance completed. tw5 01:17 IV discontinued, intact, bleeding controlled, No redness/swelling at site. Pressure tw5 dressing applied. Administered Medications: No medications were administered Medication: 10/06 23:56 VIS not applicable for this client. tw5 Outcome: 10/07 00:50 Discharge ordered by . kdr 01:17 Discharged to home with family. tw5 01:17 Condition: stable 01:17 Discharge instructions given to patient, family, Instructed on discharge instructions, follow up and referral plans. Demonstrated understanding of instructions, follow-up care. 01:18 Patient left the ED. tw Signatures: Dispatcher [employer] EDAL Socrates Mustafa MD MD kdr Fern Deleon, RN RN Claudio Alondra 5 Corrections: (The following items were deleted from the chart) 10/06 23:57 23:56 BASIC METABOLIC PANEL+C.LAB.BRZ drawn and sent. 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 Upon arrival pt was unresponsive, wheezing, diffuse hives noted. 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 hb
--- NOTE | 2021-10-07 00:51 | EDPHYS ---
Physician Documentation [facility] Name: Poncho Roque Age: 21 yrs Sex: Male : 2000 Arrival Date: 10/06/2021 Time: 22:49 Bed 7 Private MD: ED Physician Socrates Mustafa HPI: 10/07 03:47 This 21 yrs old Black Male presents to ER via EMS with complaints of Allergic Reaction. kdr 03:48 Patient was brought to the emergency department for possible allergic reaction versus a kdr seizure. Patient has reported history of shellfish allergies. There was some questions whether he may have been exposed directly or indirectly to shellfish material. The patient's girlfriend relates that when she was with him she witnessed a period of about 15 to 20 minutes when he was very rigid and stiff. He was not speaking during this period of time nor was he shaking generally tonic-clonic fashion. She had not seen his current behavior out of him before and had no other experience like this with him previously. 03:55 Family reported that the patient had hives and was short of breath however again its kdr been not made clear as to how he may have been exposed to shellfish. Upon EMS arrival patient was poorly responsive, wheezing and had they report diffuse hives. Benadryl was given along with Zofran and epi and an neb treatment. Additionally Solu-Medrol was given.. Historical: - Allergies: 10/06 22:55 SEAFOOD; hb 22:55 Shellfish Containing Products; hb - Home Meds: 22:55 epi pen [Active]; hb - PMHx: 22:55 Anxiety; hb - Immunization history:: Flu vaccine is not up to date. - Social history:: Smoking status: Patient reports the use of cigarette tobacco products, smokes one-half pack cigarettes per day, Reported history of juuling and/or vaping. Patient/guardian denies using alcohol, street drugs. ROS: 10/07 03:55 Constitutional: Negative for fever, chills, and weight loss, Eyes: Negative for injury, kdr pain, redness, and discharge, Neck: Negative for injury, pain, and swelling, Cardiovascular: Negative for chest pain, palpitations, and edema, Respiratory: Negative for shortness of breath, cough, wheezing, and pleuritic chest pain, Abdomen/GI: Negative for abdominal pain, nausea, vomiting, diarrhea, and constipation, Back: Negative for injury and pain, MS/Extremity: Negative for injury and deformity, Neuro: Negative for headache, weakness, numbness, tingling, and seizure activity. Psych: Negative for depression, anxiety, suicide ideation, homicidal ideation, and hallucinations. Skin: Positive for Family and EMS reported hives however there was no obvious allergic reaction related physical findings on the patient's initial presentation in the ED. Exam: 03:55 Constitutional: This is a well developed, well nourished patient who is somnolent and kdr in no acute distress. Head/Face: Normocephalic, atraumatic. Eyes: Pupils equal round and reactive to light, extra-ocular motions intact. Lids and lashes normal. Conjunctiva and sclera are non-icteric and not injected. Cornea within normal limits. Periorbital areas with no swelling, redness, or edema. Neck: Trachea midline, no thyromegaly or masses palpated, and no cervical lymphadenopathy. Supple, full range of motion without nuchal rigidity, or vertebral point tenderness. No Meningismus. Chest/axilla: Normal chest wall appearance and motion. Nontender with no deformity. No lesions are appreciated. Cardiovascular: Regular rate and rhythm with a normal S1 and S2. No gallops, murmurs, or rubs. Normal PMI, no JVD. No pulse deficits. Respiratory: Lungs have equal breath sounds bilaterally, clear to auscultation and percussion. No rales, rhonchi or wheezes noted. No increased work of breathing, no retractions or nasal flaring. Abdomen/GI: Soft, non-tender, with normal bowel sounds. No distension or tympany. No guarding or rebound. No evidence of tenderness throughout. Back: No spinal tenderness. No costovertebral tenderness. Full range of motion. Skin: Warm, dry with normal turgor. Normal color with no rashes, no lesions, and no evidence of cellulitis. MS/ Extremity: Pulses equal, no cyanosis. Neurovascular intact. Full, normal range of motion. Neuro: Awake and alert, GCS 15, oriented to person, place, time, and situation. Cranial nerves II-XII grossly intact. Motor strength 5/5 in all extremities. Sensory grossly intact. Cerebellar exam normal. Normal gait. Psych: Awake, alert, with orientation to person, place and time. Behavior, mood, and affect are within normal limits. Vital Signs: 10/06 22:50 Pulse 87; Resp 21; Pulse Ox 99% on R/A; Weight 97 kg; Pain 0/10; hb 23:30 BP 106 / 54; Pulse 72; Resp 20; Pulse Ox 98% on R/A; hb 23:56 BP 95 / 60; Pulse 76; Resp 18; Pulse Ox 100% on R/A; tw5 MDM: 10/07 00:50 Patient medically screened. kdr 03:55 Data reviewed: vital signs, nurses notes, lab test result(s). Counseling: I had a kdr detailed discussion with the patient and/or guardian regarding: the historical points, exam findings, and any diagnostic results supporting the discharge/admit diagnosis, lab results, the need for outpatient follow up. ED course: Patient continued to improve while in the ED. He had no further evidence of either allergic reaction or seizure activity. Since he had no prior seizure history, he was not started on any prophylactic medication for seizures. Additionally he did not display in the ED any evidence of anaphylaxis specifically hives. 10/06 23:39 Order name: Acetaminophen; Complete Time: 00:47 [facility] 10/06 23:39 Order name: Basic Metabolic Panel; Complete Time: 00:47 [facility] 10/06 23:39 Order name: CBC with Diff; Complete Time: 00:47 [facility] 10/06 23:39 Order name: ETOH Level; Complete Time: 00:47 [facility] 10/06 23:39 Order name: Hepatic Function; Complete Time: 00:47 [facility] 10/06 23:39 Order name: Salicylate; Complete Time: 00:47 [facility] 10/06 23:39 Order name: Urine Drug Screen; Complete Time: 00:47 [facility] 10/06 23:39 Order name: IV Saline Lock; Complete Time: 23:48 [facility] 10/06 23:39 Order name: Labs collected and sent; Complete Time: 23:56 [facility] 10/06 23:39 Order name: Suicide Screening ([place]); Complete Time: 23:56 [facility] 10/06 23:39 Order name: Urine Dipstick-Ancillary (obtain specimen); Complete Time: 00:07 [facility] 10/06 23:39 Order name: CT Head Brain wo Cont kdr 10/07 00:03 Order name: Urine Dipstick-Ancillary; Complete Time: 00:47 EDMS 10/07 00:07 Order name: Urine Dipstick-Ancillary EDMS Administered Medications: No medications were administered Disposition Summary: 10/07/21 00:50 Discharge Ordered Location: Home kdr Problem: new kdr Symptoms: have improved kdr Condition: Stable kdr Diagnosis - Altered mental status, unspecified kdr Followup: kdr - With: Private Physician - When: 2 - 3 days - Reason: If symptoms return, Further diagnostic work-up, Recheck today's complaints, Continuance of care, Re-evaluation by your physician Forms: - Medication Reconciliation Form kdr - Thank You Letter kdr - Antibiotic Education kdr - Prescription Opioid Use kdr Signatures: Dispatcher [employer] EDMS Socrates Mustafa MD MD kdr Fern Deleon RN RN Alondra Partida 5 Corrections: (The following items were deleted from the chart) 10/06 23:57 23:40 BASIC METABOLIC PANEL+C.LAB.BRZ ordered. EDMS EDMS
[2021-10-07 03:38] VITALS: BP 95/60; O2SAT 100
--- NOTE | 2021-10-07 14:16 | RAD REPORT ---
EXAM DESCRIPTION: CT - Head Brain Wo Cont - 10/07/2021 6:51 am CLINICAL HISTORY: 21 years Male Mental status change, unknown cause COMPARISON: None TECHNIQUE: Images were obtained in axial, sagittal, and planes. This exam was performed according to our departmental dose-optimization program which includes use of Automated Exposure Control, adjustment of the mA and/or kV according to patient size and/or use of iterative reconstruction technique. FINDINGS: Ventricular system appears normal. No abnormal areas of increased attenuation seen. No extra-axial fluid collections noted. No evidence for skull fracture. Symmetric aeration mastoid air cells bilaterally. Unremarkable parana chris sinuses. IMPRESSION: No acute intracranial abnormality. No evidence for hemorrhage, mass lesion, or large acu te infarction. Electronically signed by: Kusum Cordova MD 10/07/2021 12:21 AM CDT Due to temporary technical issues with the PACS/Fluency reporting system, reports are being signed by the in house radiologists without review as a courtesy to insure prompt reporting. The interpreting radiologist is fully responsible for the content of the report.
== END 2021-10-07 01:18 | disposition home or self-care (01) ==
LOC: ER 22:48
DX: R41.82 Altered mental status, unspecified (principal); Z91.013 Allergy to seafood; F17.210 Nicotine dependence, cigarettes, uncomplicated
CPT/HCPCS: 36415; 70450; 80048; 80076; 80307; 80320; 80329; 81003; 85025; 99283

== ENCOUNTER 2021-10-17 08:45 | Emergency (ER) | payer SELFPAY ==
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
[2021-10-17] MEDS ORDERED: CYCLOBENZAPRINE 10 MG TAB ONE (09:24)
[2021-10-17] MEDS ORDERED: KETOROLAC 30 MG/ML INJ ONE (09:24)
--- NOTE | 2021-10-17 09:28 | EDPHYS ---
Physician Documentation [facility] Name: Poncho Roque Age: 21 yrs Sex: Male : 2000 Arrival Date: 10/17/2021 Time: 08:50 Bed 11 Private MD: ED Physician Toni Mclain HPI: 10/17 09:05 This 21 yrs old Black Male presents to ER via Ambulatory with complaints of Neck Pain, jh7 <24hrs Old. 09:05 The patient or guardian complains of pain, that is acute. Onset: The symptoms/episode jh7 began/occurred yesterday. Associated signs and symptoms: Pertinent negatives: chills, fever, headache, nausea, numbness, tingling, vomiting, weakness. The pain does not radiate. Patient reports left-sided neck pain since yesterday. Reports that he started a new job 1 week ago, which requires a great deal of heavy lifting. States that his pain occurs with lateral rotation of the neck. No numbness, tingling, weakness, or loss of bowel or bladder.. Historical: - Allergies: 09:07 SEAFOOD; iw 09:07 Shellfish Containing Products; iw - Home Meds: 09:07 epi pen [Active]; iw - PMHx: 09:07 Anxiety; iw - Immunization history:: Adult Immunizations unknown. - Social history:: Smoking status: . ROS: 09:05 Constitutional: Negative for fever, chills, and weight loss, Eyes: Negative for injury, jh7 pain, redness, and discharge, ENT: Negative for injury, pain, and discharge, Cardiovascular: Negative for chest pain, palpitations, and edema, Respiratory: Negative for shortness of breath, cough, wheezing, and pleuritic chest pain, Abdomen/GI: Negative for abdominal pain, nausea, vomiting, diarrhea, and constipation, Back: Negative for injury and pain, MS/Extremity: Negative for injury and deformity, Neuro: Negative for headache, weakness, numbness, tingling, and seizure. 09:05 Neck: Positive for pain with movement, rash, Negative for swelling, swollen nodes, tenderness, bony tenderness. 09:05 Skin: Positive for rash, Negative for abscesses, cellulitis. 09:05 All other systems are negative. Exam: 09:05 Head/Face: Normocephalic, atraumatic. jh7 09:05 Cardiovascular: Regular rate and rhythm with a normal S1 and S2. No gallops, murmurs, or rubs. Normal PMI, no JVD. No pulse deficits. Respiratory: Lungs have equal breath sounds bilaterally, clear to auscultation and percussion. No rales, rhonchi or wheezes noted. No increased work of breathing, no retractions or nasal flaring. Abdomen/GI: Soft, non-tender, with normal bowel sounds. No distension or tympany. No guarding or rebound. No evidence of tenderness throughout. Neuro: Awake and alert, GCS 15, oriented to person, place, time, and situation. Cranial nerves II-XII grossly intact. Motor strength 5/5 in all extremities. Sensory grossly intact. Cerebellar exam normal. Normal gait. 09:05 Neck: External neck: is normal, C-spine: appears grossly normal, Thyroid: appears normal, Trachea: is midline with no obvious abnormalities, ROM/movement: pain, that is mild, with rotation to the left, with rotation to the right. 09:05 Musculoskeletal/extremity: Left-sided neck pain worsening with lateral rotation. No swelling, bruising, or tenderness to palpation noted. No spinal tenderness or step-off.. 09:05 Skin: Scaly, pruritic, excoriated, plaque like rash present on chin, abdomen, bilateral sides of the neck, and groin.. Vital Signs: 09:06 BP 117 / 66; Pulse 60; Resp 16; Temp 98.1; Pulse Ox 100% on R/A; iw MDM: 09:04 Patient medically screened. [facility] 09:35 Differential diagnosis: cervical strain, torticollis. Data reviewed: vital signs, [facility] nurses notes. Data interpreted: Pulse oximetry: is 100 %. Interpretation: normal. Counseling: I had a detailed discussion with the patient and/or guardian regarding: the historical points, exam findings, and any diagnostic results supporting the discharge/admit diagnosis, the need for outpatient follow up, a plant maintenance mechanic, to return to the emergency department if symptoms worsen or persist or if there are any questions or concerns that arise at home. Administered Medications: 09:22 Drug: Flexeril (cyclobenzaprine) 10 mg Route: PO; iw 09:30 Follow up: Response: No adverse reaction iw 09:23 Drug: Ketorolac 60 mg Route: IM; Site: left deltoid; iw 09:45 Follow up: Response: No adverse reaction iw Disposition: 16:43 Co-signature as Attending Physician, Toni Mclain DO I agree with the assessment and ms3 plan of care. Chart complete. Disposition Summary: 10/17/21 09:27 Discharge Ordered Location: Home [facility] Problem: new jh7 Symptoms: have improved jh7 Condition: Stable jh7 Diagnosis - Cervical Strain jh7 - Tinea corporis jh7 Followup: 7 - With: Private Physician - When: 2 - 3 days - Reason: Recheck today's complaints Discharge Instructions: - Discharge Summary Sheet jh7 - Body Ringworm jh7 - Cervical Sprain jh7 Forms: - Work release form iw - Medication Reconciliation Form 7 - Thank You Letter [facility] Prescriptions: - Clotrimazole 1 % Topical Cream - Apply to affected area 1 application by TOPICAL route every 12 hours for 10 jh7 days; 45 gram; Refills: 0, Product Selection Permitted - Naprosyn 500 mg Oral Tablet - take 1 tablet by ORAL route 2 times per day take with food; 30 tablet; Refills: jh7 0, Product Selection Permitted Signatures: Albina James, RN ROBERTO iw Toni Mclain DO DO ms3 Caroline Gray FNP [employer] jh7
--- NOTE | 2021-10-17 09:28 | ER ---
Nurse's Notes [facility] Name: Poncho Roque Age: 21 yrs Sex: Male : 2000 Arrival Date: 10/17/2021 Time: 08:50 Bed 11 Private MD: Diagnosis: Cervical Strain;Tinea corporis Presentation: 10/17 09:06 Chief complaint: Patient states: can't turn my neck back all the way and I have a rash iw on my neck and on my body for months , neck pain started yesterday. Coronavirus screen: At this time, the client does not indicate any symptoms associated with coronavirus-19. Ebola Screen: Patient negative for fever greater than or equal to 101.5 degrees Fahrenheit, and additional compatible Ebola Virus Disease symptoms Patient denies exposure to infectious person. Patient denies travel to an Ebola-affected area in the 21 days before illness onset. No symptoms or risks identified at this time. Initial Sepsis Screen: Does the patient meet any 2 criteria? No. Patient's initial sepsis screen is negative. Does the patient have a suspected source of infection? No. Patient's initial sepsis screen is negative. Risk Assessment: Do you want to hurt yourself or someone else? Patient reports no desire to harm self or others. 09:06 Method Of Arrival: Ambulatory iw 09:06 Acuity: LEIA 5 iw Triage Assessment: 09:20 General: Appears in no apparent distress. Behavior is calm, cooperative. iw Historical: - Allergies: 09:07 SEAFOOD; iw 09:07 Shellfish Containing Products; iw - Home Meds: 09:07 epi pen [Active]; iw - PMHx: 09:07 Anxiety; iw - Immunization history:: Adult Immunizations unknown. - Social history:: Smoking status: . Screenin:44 Abuse screen: Denies threats or abuse. Denies injuries from another. Nutritional iw screening: No deficits noted. Tuberculosis screening: No symptoms or risk factors identified. Fall Risk None identified. Assessment: 09:20 General: Appears in no apparent distress. Behavior is calm, cooperative. Pain: iw Complains of pain in neck. Neuro: Level of Consciousness is awake, alert, obeys commands, Oriented to person, place, time, situation, Moves all extremities. Full function. Cardiovascular: Patient's skin is warm and dry. Respiratory: Respiratory effort is even, unlabored. Derm: Skin is intact, Rash noted that is on pelvis, right arm, left arm, right leg, left leg and neck. Musculoskeletal: Range of motion: intact in all extremities. Vital Signs: 09:06 BP 117 / 66; Pulse 60; Resp 16; Temp 98.1; Pulse Ox 100% on R/A; iw ED Course: 08:50 Patient arrived in ED. am2 08:50 [facility] 08:50 Toni Mclain DO is Attending Physician. [facility] 09:00 Arm band placed on right wrist. iw 09:07 Triage completed. iw 09:10 Albina James RN is Primary Nurse. iw 09:20 Patient has correct armband on for positive identification. iw 09:44 No provider procedures requiring assistance completed. Patient did not have IV access iw during this emergency room visit. Administered Medications: 09:22 Drug: Flexeril (cyclobenzaprine) 10 mg Route: PO; iw 09:30 Follow up: Response: No adverse reaction iw 09:23 Drug: Ketorolac 60 mg Route: IM; Site: left deltoid; iw 09:45 Follow up: Response: No adverse reaction iw Medication: 09:30 VIS not applicable for this client. iw Outcome: 09:27 Discharge ordered by . [facility] 09:44 Discharged to home ambulatory. iw 09:44 Condition: good 09:44 Discharge instructions given to patient, Instructed on discharge instructions, follow up and referral plans. medication usage, Demonstrated understanding of instructions, follow-up care, medications, Prescriptions given X 2. 09:45 Patient left the ED. iw Signatures: Albina James, ROBERTO RN Lola Laird 2 Caroline Gray FNP FNP [facility]
[2021-10-17 10:01] VITALS: BP 117/66; TEMP 98.1; O2SAT 100
== END 2021-10-17 09:45 | disposition home or self-care (01) ==
LOC: ER 08:45
DX: S16.1XXA Strain of muscle, fascia and tendon at neck level, initial encounter (principal); B35.4 Tinea corporis; Z91.013 Allergy to seafood
CPT/HCPCS: 96372; 99283

== ENCOUNTER 2023-01-19 18:34 | Emergency (ER) | payer SELFPAY ==
--- OUTSIDE RECORDS SUMMARY | 2023-01-19 18:38 | XMS REPORT | Continuity of Care Document ---
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 history, Family history, Social historyAlcohol Use Denies EtOH useDrug Use Denies recreational drugsSmoking status for patients 13 years old or older: Current some day smokerAmbulatory Status Independent Physical Exam Vital SignsVital SignsFirst Documented: Result Date Time Pulse Ox 99 03/11 1404 B/P 125/84 03/11 1404 B/P Mean 97.4 03/11 1404 Temp 98.2 03/11 1404 Pulse 91 03/11 1404 Resp 18 03/11 140 Last Documented: Result Date Time Pulse Ox 99 03/11 1404 B/P 125/84 03/11 1403 B/P Mean 97.4 03/11 1404 Temp 98.2 03/11 1404 Pulse 91 03/11 1404 Resp 18 03/11 1404 Review of Vital Signs Reviewed, Vital signs normal Basic Physical ExamBasic PE GEN: Well appearing/NAD, HEAD: Atraumatic/NC, ENT: Membranes moist, NECK: Supple, RESP: No resp distress, CV: Reg rate rhythm, ABD: Soft/non-tender, EXT: No gross abnormality, SKIN: No rashes, warm/dry, NEURO: alert oriented, NEURO: gross movement NL, PSYCH: NL thought content Focused PEGeneral/Const General/Const Awake, Alert, Well appearingMS Head Head NormocephalicEyes Eyes PERRL, EOMI, No nystagmus, No periorbital redness, No periorbital swelling, No photophobia, No scleral icterus, Cornea clear, No corneal abrasion,Eyelids NL, Visual acuity NL Conjunctiva/Sclera Injected L, Discharge L. Ears/Nose/Throat Ears/Nose/Throat Airway patent, Mucous membranes moist, Pharynx NLSkin Skin Color NL, No rash, Warm, Dry, Turgor NLNeurologic Neurologic Oriented X3, Speech NL, No motor deficits, No sensory deficits Interpretation Diagnostics Point of Care TestingPulse Oximetry Pulse Ox % 100 On: Room air Interpretation Interpreted by me, Pulse oximetry normal Time 1416 Re-Evaluation MDM Free Text MDM NotesFree Text MDM NotesFluoresceince stain used to examine left eye. No Signs of foreign body or abrasion. Pt given RX for ABX eye drops. Discharged home. Given strict follow upinstructions and return precautions. Happy with treatment plan and verbalized understanding of all instructions including when/if to return to the ER for further evaluation. Re-Evaluation/ProgressRe-Evaluation/Progress Time of Re-Eval 1418 Re-Eval Status Improved Plan Post Re-Eval Plan discharge Differential DiagnosisDifferential Diagnosis Conjunctivitis, bacterial, Corneal abrasion, Foreign body, corneal Patient Discharge Departure Vital Signs/ConditionVital SignsFirst Documented: Result Date Time Pulse Ox 99 03/11 1404 B/P 125/84 03/11 1404 B/P Mean 97.4 03/11 1404 Temp 98.2 03/11 1404 Pulse 91 03/11 1404 Resp 18 03/11 1404 Last Documented: Result Date Time Pulse Ox 99 03/11 1404 B/P 125/84 03/11 1404 B/P Mean 97.4 03/11 1404 Temp 98.2 03/11 1404 Pulse 91 03/11 1404 Resp 18 03/11 1404 All vital signs available at the time of this entry have been reviewed. Condition Improved, Stable Clinical ImpressionClinical ImpressionPrimary Impression: Bacterial conjunctivitisRuled Out Impressions: Corneal foreign body Disposition DecisionDischarge )( Discharged to Home Yes )( Time 1419 )( Date 03/11/19 Discharge/Care PlanCounseled Regarding Diagnosis, Prescriptions, Need for follow-up, When to returnto EDPrescriptionsPolytrimPrescriptions Reviewed Risks, Benefits, Alternative treatment Discharge NoteI have spoken with the patient and/or caregivers. I have explained the patient'scondition, diagnoses and treatment plan based on the information available to meat this time. I have answered the patient's and/or caregiver's questions and addressed any concerns. The patient and/or caregivers have as good an understanding of the patient's diagnosis, condition and treatment plan as can beexpected at this point. The vital signs have been stable. The patient's condition is stable and appropriate for discharge from the emergency department. The patient will pursue further outpatient evaluation with the primary care physician or other designated or consulting physician as outlined in the discharge instructions. The patient and/or caregivers are agreeable to this planof care and follow-up instructions have been explained in detail. The patient and/or caregivers have received these instructions in written format and have expressed an understanding of the discharge instructions. The patient and/or caregivers are aware that any significant change in condition or worsening of symptoms should prompt an immediate return to this or the closest emergency department or a call to 911. Quality MeasuresCurrent Medications Not eligible for reviewSmoking Cessation Screened, tobacco userTobacco Screening/Cessation 18 years or older, Tobacco user, Smoking cessation offered, Declined help, Counseled 3-10 minutes Smoking Cessation CounselingThe patient was questioned regarding their smoking habits, and I have determined, as the patient's treating physician, that there is a medical necessity in regards to the patient's medical condition to provide smoking cessation program education. The patient was advised to stop smoking and counseled for a period ofgreater than 3 minutes. The patient was instructed to follow up with a primary care physician for smoking cessation and given information regarding local smoking cessation programs in the area. The patient received detailed discharge instructions as to how to stop smoking. The patient expressed an understanding of the need to follow up and the plan for smoking cessation. at 1607RPT #:[id number] OF REPORTEDEmergency department [id number]:19:00N.[id number] ilable for patient [id number]:08:08 [facility] 2019-03-11 14:19:00 [id number]:19:00 [facility] ([facility])EMERGENCY PROVIDER REPORTREPORT#:[id number] REPORT STATUS: SignedDATE:03/11/19 TIME: 1419 PATIENT: NILDA ARAUJO UNIT #: [id number]#: [id number] ROOM: BED:AGE: 18 SEX: M PCP PHYS: No Primary or Family PhysicianSERVICE AUTHOR: Sy Noriega APRN * ALL edits or amendments must be made on the electronic/computer document * HPI-Eye Problem GeneralConfirmed Patient YesPatient Type New patientInitial Greet Date/Time 03/11/19 1402 Provider in TriageHPI Chief Complaint LEFT EYE CRUSTING UPON AWAKING AND CHALZION OF LOWER LID Onset Occurred Days agoPE General/Const No acute distress PresentationChief Complaint Eye L affected, Discharge, Pain, RednessHx Obtained From PatientSudden in Onset? YesOnset Occurred One week agoSymptom Duration ConstantProgression since Onset ConstantCaused by No trauma by historyContext: Occurred at HomeLocation Eye LQuality PainfulRadiation Does not radiateSeverity: Onset MildSeverity: Current MildAssociated withDenies: Abdominal pain, Blurred vision, Burning, Crusting in AM, Eye tearing, Fever, Forehead pain, Foreign body sensation, Halos around lights, Joint pain, Nausea, Photophobia. Associated Other Pt denies other symptomsExacerbated by BlinkingRelieved by Nothing, Eyes closed, Dark room, Irrigation Free Text HPI NotesFree Text HPI NotesPt reports left eye pain, redness, discharge for 1 week. 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 Pt A OX4, no distress. Risk-Eye Problem Risk Stratification)( Eye Injury - Adult Risk factors reviewed, Welding Review of Systems ROS StatementsAll systems rev neg except as marked. Focused Review of SystemsConstitutionalDenies: Chills, Fever, Lethargy. EyesReports: Discharge L, Eye pain L, Redness L. Ears/Nose/ThroatDenies: Earache bilat, Nasal congestion, Sore throat. GIDenies: Abdominal pain, Diarrhea, Nausea, Vomiting. SkinDenies: Diaphoresis, Rash. Allergy/ImmunDenies: Hives, Itching. NeurologicDenies: Change LOC, Dizziness, Focal weakness, Headache, Numbness, Slurred speech. Past Medical History - AdultStated Complaint EYE INFECTIONAllergiesCoded Allergies:No Known Allergies (03/11/19) Pt reports no significant: Past medical history, Past surgical history, Family history, Social historyAlcohol Use Denies EtOH useDrug Use Denies recreational drugsSmoking status for patients 13 years old or older: Current some day smokerAmbulatory Status Independent Physical Exam Vital SignsVital SignsFirst Documented: Result Date Time Pulse Ox 99 03/11 1404 B/P 125/84 03/11 1404 B/P Mean 97.4 03/11 1404 Temp 98.2 03/11 1404 Pulse 91 03/11 1404 Resp 18 03/11 140 Last Documented: Result Date Time Pulse Ox 99 03/11 1404 B/P 125/84 03/11 1404 B/P Mean 97.4 03/11 1404 Temp 98.2 03/11 1404 Pulse 91 03/11 1404 Resp 18 03/11 1404 Review of Vital Signs Reviewed, Vital signs normal Basic Physical ExamBasic PE GEN: Well appearing/NAD, HEAD: Atraumatic/NC, ENT: Membranes moist, NECK: Supple, RESP: No resp distress, CV: Reg rate rhythm, ABD: Soft/non-tender, EXT: No gross abnormality, SKIN: No rashes, warm/dry, NEURO: alert oriented, NEURO: gross movement NL, PSYCH: NL thought content Focused PEGeneral/Const General/Const Awake, Alert, Well appearingMS Head Head NormocephalicEyes Eyes PERRL, EOMI, No nystagmus, No periorbital redness, No periorbital swelling, No photophobia, No scleral icterus, Cornea clear, No corneal abrasion,Eyelids NL, Visual acuity NL Conjunctiva/Sclera Injected L, Discharge L. Ears/Nose/Throat Ears/Nose/Throat Airway patent, Mucous membranes moist, Pharynx NLSkin Skin Color NL, No rash, Warm, Dry, Turgor NLNeurologic Neurologic Oriented X3, Speech NL, No motor deficits, No sensory deficits Interpretation Diagnostics Point of Care TestingPulse Oximetry Pulse Ox % 100 On: Room air Interpretation Interpreted by me, Pulse oximetry normal Time 1416 Re-Evaluation MDM Free Text MDM NotesFree Text MDM NotesFluoresceince stain used to examine left eye. No Signs of foreign body or abrasion. Pt given RX for ABX eye drops. Discharged home. Given strict follow upinstructions and return precautions. Happy with treatment plan and verbalized understanding of all instructions including when/if to return to the ER for further evaluation. Re-Evaluation/ProgressRe-Evaluation/Progress Time of Re-Eval 1418 Re-Eval Status Improved Plan Post Re-Eval Plan discharge Differential DiagnosisDifferential Diagnosis Conjunctivitis, bacterial, Corneal abrasion, Foreign body, corneal Patient Discharge Departure Vital Signs/ConditionVital SignsFirst Documented: Result Date Time Pulse Ox 99 03/11 1404 B/P 125/84 03/11 1404 B/P Mean 97.4 03/11 1404 Temp 98.2 03/11 1404 Pulse 91 03/11 1404 Resp 18 03/11 1404 Last Documented: Result Date Time Pulse Ox 99 03/11 1404 B/P 125/84 03/11 1404 B/P Mean 97.4 03/11 1404 Temp 98.2 03/11 1404 Pulse 91 03/11 1404 Resp 18 03/11 1404 All vital signs available at the time of this entry have been reviewed. Condition Improved, Stable Clinical ImpressionClinical ImpressionPrimary Impression: Bacterial conjunctivitisRuled Out Impressions: Corneal foreign body Disposition DecisionDischarge )( Discharged to Home Yes )( Time 1419 )( Date 03/11/19 Discharge/Care PlanCounseled Regarding Diagnosis, Prescriptions, Need for follow-up, When to returnto EDPrescriptionsPolytrimPrescriptions Reviewed Risks, Benefits, Alternative treatment Discharge NoteI have spoken with the patient and/or caregivers. I have explained the patient'scondition, diagnoses and treatment plan based on the information available to meat this time. I have answered the patient's and/or caregiver's questions and addressed any concerns. The patient and/or caregivers have as good an understanding of the patient's diagnosis, condition and treatment plan as can beexpected at this point. The vital signs have been stable. The patient's condition is stable and appropriate for discharge from the emergency department. The patient will pursue further outpatient evaluation with the primary care physician or other designated or consulting physician as outlined in the discharge instructions. The patient and/or caregivers are agreeable to this planof care and follow-up instructions have been explained in detail. The patient and/or caregivers have received these instructions in written format and have expressed an understanding of the discharge instructions. The patient and/or caregivers are aware that any significant change in condition or worsening of symptoms should prompt an immediate return to this or the closest emergency department or a call to 911. Quality MeasuresCurrent Medications Not eligible for reviewSmoking Cessation Screened, tobacco userTobacco Screening/Cessation 18 years or older, Tobacco user, Smoking cessation offered, Declined help, Counseled 3-10 minutes Smoking Cessation CounselingThe patient was questioned regarding their smoking habits, and I have determined, as the patient's treating physician, that there is a medical necessity in regards to the patient's medical condition to provide smoking cessation program education. The patient was advised to stop smoking and counseled for a period ofgreater than 3 minutes. The patient was instructed to follow up with a primary care physician for smoking cessation and given information regarding local smoking cessation programs in the area. The patient received detailed discharge instructions as to how to stop smoking. The patient expressed an understanding of the need to follow up and the plan for smoking cessation. at 1607 at 1731RPT #:[id number] OF REPORTEDEmergency department [id number]:19:00N.[id number] ilable for patient [id number]:31:47 HCANW 2018-08-14 19:47:00 [id number]:47:00 [facility])EMERGENCY PROVIDER REPORTREPORT#:[id number] REPORT STATUS: SignedDATE:08/14/18 TIME:1946 PATIENT: NILDA ARAUJO UNIT #: [id number]#: [id number] ROOM/BED:: 99 AGE: 18 SEX: M PCP PHYS: No Primary or Family PhysicianSERVICE AUTHOR: Susan Loja * ALL edits or amendments must be made on the electronic/computer document * Susan Loja 08/14/181946:HPI-Nausea/Vomit/Diarrhea GeneralConfirmed Patient YesPatient Type New patientPCPNone PresentationChief Complaint C/o vomiting and diarrhea since this morning. Also c/o diffuse muscle cramps. Pt denies h/o working outside in the heat or sweating heavily theday before. States 2 days ago [place] the [place] one beer, but denies any other recent activity.Hx Obtained From PatientProgression since Onset IntermittentSeverity: Current Pain level 9 out of 10Exacerbated by Food, LiquidsRelieved by Nothing Review of Systems Focused Review of SystemsConstitutionalDenies: Chills, Fatigue, Fever, Lethargy, Malaise. Ears/Nose/ThroatDenies: Nasal congestion, Sore throat. GIReports: Diarrhea, Nausea, Vomiting. Denies: Abdominal pain. SkinDenies: Erythema, Rash, Swelling. NeurologicReports: Generalized weakness, Lightheaded. Denies: Focal weakness, Headache. Additional Review of SystemsRespiratoryDenies: Cough, non-productive, Cough, productive, Shortness of breath. CardiovascularDenies: Chest pain, Edema. MaleDenies: Dysuria, Urinary frequency, Urinary urgency. MusculoskeletalReports: Back pain, Extremity pain. Denies: Extremity swelling. Past Medical History - AdultStated Complaint N/V/D MUSCLE CRAMPSAllergiesCoded Allergies:No Known Allergies (08/14/18) Pt reports no significant: Past medical history, Past surgical historyAlcohol Use Alcohol useDrug Use Denies recreational drugsSmoking status for patients 13 years old or older: Current every day smoker Physical Exam Vital SignsVital SignsFirst Documented: Result Date Time Pulse Ox 98 08/15 1907 B/P 140/77 08/15 1907 B/P Mean 98 08/15 1907 O2 Delivery Room air 08/15 1907 Temp 37.2 08/15 1907 Pulse 103 08/15 1907 Resp 18 08/15 1907 Last Documented: Result Date Time Pulse Ox 98 08/14 2050 B/P 122/60 08/14 2050 B/P Mean 80 08/14 2050 O2 Delivery Room air 08/14 2050 Temp 36.8 08/14 2050 Pulse 94 08/14 2050 Resp 16 08/14 2050 Review of Vital Signs Reviewed Focused PEGeneral/Const General/Const Awake, Alert, No acute distress, Well appearing, Well developed, Well hydrated, Well nourished, Cooperative, Not toxic appearingEars/Nose/Throat Ears/Nose/Throat Airway patent, Pharynx NL Mouth Mucous membranes dry. Resp/Chest Respiratory/Chest Breath sounds NL, Breath sounds = bilat, No respiratory distress, No rales, No rhonchi, No wheezing, No retractionsCardiovascular Cardiovascular Heart rate NL, Regular rhythm, Heart sounds NL, Peripheral circulation NLAbdomen/GI Abdomen/GI Soft, Non-tender, McBurney's non-tender, No guarding, No rebound, BS normoactive, No distentionMS Back Back Atraumatic, Inspection NL, Non-tender, No CVA tendernessSkin Skin Atraumatic, Color NL, No rash, Warm, Dry, Intact, Turgor NL, No swellingNeurologic Neurologic Oriented X3, Speech NL, No motor deficits, Gait NL Interpretation Diagnostics Lab Results InterpretationResultsLaboratory Tests 08/14/18 1920:[Embedded Image Not Available]Laboratory Tests: 08/14 08/14 192 1920 Chemistry Sodium (134 - 147 mmol/L) 139 Potassium (3.4 - 5.0 mmol/L) 3.7 Chloride (100 - 108 mmol/L) 108 Carbon Dioxide (21 - 32 mmol/L) 25 Anion Gap (4.0 - 15.0 GAP calc) 6.0 BUN (7 - 18 MG/DL) 9 Creatinine (0.8 - 1.3 MG/DL) 1.0 Glomerular Filtr Rate (>60 estGFR) >=60 max estimate Glucose (70 - 110 MG/DL) 94 Calcium (8.5 - 10.1 MG/DL) 8.7 Total Bilirubin (0.2 - 1.2 MG/DL) 0.80 Direct Bilirubin (0.00 - 0.30 MG/DL) 0.20 Indirect Bilirubin (0.2 - 1.2 MG/DL) 0.60 AST (15 - 37 Unit/L) 26 ALT (12 - 78 Unit/L) 57 Total Alk Phosphatase (50 - 136 Unit/L) 81 Total Creatine Kinase (26 - 192 Unit/L) 224 H Total Protein (6.4 - 8.2 G/DL) 7.8 Albumin (3.4 - 5.0 G/DL) 3.6 Hematology WBC (3.5 - 11.0 K/mm3) 8.6 RBC (4.70 - 6.10 M/mm3) 4.84 Hgb (12.3 - 15.9 G/DL) 14.6 Hct (35.8 - 46.7 %) 43.4 MCV (86.3 - 98.9 Fl) 89.7 MCH (28.9 - 34.4 pg) 30.2 MCHC (32.1 - 34.5 G/DL) 33.6 RDW (11.5 - 14.5 SD) 13.1 Plt Count (150 - 450 K/mm3) 236.0 MPV (7.0 - 9.6 fL) 8.70 Neut % (Auto) (24.0 - 85.0 %) 84.9 Lymph % (Auto) (20.5 - 51.1 %) 9.5 L [place] % (Auto) (1.7 - 9.3 %) 5.0 Eos % (Auto) (0.0 - 6.0 %) 0.6 Baso % (Auto) (0.0 - 2.0 %) 0.0 Neut # (Auto) (1.8 - 7.6 K/mm3) 7.34 Lymph # (Auto) (0.6 - 3.0 K/mm3) 0.8 [place] # (Auto) (0.2 - 1.5 K/mm3) 0.4 Eos # (Auto) (0.0 - 0.4 K/mm3) 0.1 Baso # (Auto) (0.0 - 0.2 K/mm3) 0.0 Add Manual Diff (CRITERIA DIFF/SCN) NO Urines Urine pH (5.0 - 7.0 pH UNITS) 6.5 Ur Specific [place] (1.005 - 1.030 SG) 1.020 Urine Protein (NEG mg/dL) NEGATIVE Urine Glucose (UA) (NEG mg/dL) NEGATIVE Urine Ketones (NEG mg/dL) NEGATIVE Urine Blood (NEG mg/DL) NEGATIVE Urine Nitrite (NEG SCREEN) NEGATIVE Urine Bilirubin (NEG mg/dL) NEGATIVE Urine Urobilinogen (<2.0 mg/dL) 0.2 Ur Leukocyte Esterase (NEGATIVE Leuk/mcL) NEGATIVE Lab StatementLaboratory studies reviewed and considered in the medical decision-making. ECG #1 InterpretationDate 08/14/18Time 1920Interpreted by ED physicianNL ECG Interpretation Normal rate (97), Normal sinus rhythm, No acute ischemic changes, No STEMI, Normal intervals, Adequate tracing Re-Evaluation MDM Re-Evaluation/Progress #1Time of Re-Eval 2100Re-Eval Status Improved, Diarrhea x 1 while in ED. No vomiting. PT tolerated po fluids. Muscle cramping is improving per patient. ED CourseMedication(s) Ordered Differential DiagnosisDifferential Diagnosis Acute gastroenteritis, dehydration, rhabdomyolosis Patient Discharge Departure Vital Signs/ConditionVital SignsFirst Documented: Result Date Time Pulse Ox 98 08/15 1907 B/P 140/77 08/15 1907 B/P Mean 98 08/15 1907 O2 Delivery Room air 08/15 1907 Temp 37.2 08/15 1907 Pulse 103 08/15 1907 Resp 18 08/15 1907 Last Documented: Result Date Time Pulse Ox 98 08/14 2050 B/P 122/60 08/14 2050 B/P Mean 80 08/14 2050 O2 Delivery Room air 08/14 2050 Temp 36.8 08/14 2050 Pulse 94 08/14 2050 Resp 16 08/14 2050 All vital signs available at the time of this entry have been reviewed. Condition Stable Clinical ImpressionClinical ImpressionPrimary Impression: Vomiting and diarrhea Disposition DecisionDischarge )( Discharged to Home Yes )( Time 2105 )( Date 08/14/18 Discharge/Care PlanCounseled Regarding Diagnosis, Lab results, Prescriptions, Need for follow-up, When to return to ED, D/w pt hydration plan, diet, and need for rest over the next few days. Return to the ED for any worsening symptoms or concerns. F/u withPCP in 2 days.Prescriptionszofran, jarvismoBri Ennis 08/14/182055:HPI-Nausea/Vomit/Diarrhea GeneralDate/Time Seen by Provider 08/14/18 1909 Portions of this section were scribed by Jeannette Hatfield on 08/14/18 at 2100 Physical Exam Vital SignsVital Signs Review of Vital Signs Reviewed Free Text PE NotesFree Text PE NotesGeneral/ConstGeneral/Const Awake, AlertMS HeadHead Atraumatic, NormocephalicEyesEyes Atraumatic, No scleral icterusMS NeckNeck Atraumatic, No meningismus, Full range of motionneck easily mobileResp/Chest no labored bs, no audible wheezingCardiovascularCardiovascular no cyanosis,Ext: moving all 4 ext, no swelling/ cyanosis noted on UE BlSkinSkin no apparent rashes, Dry, IntactNeurologicNeurologic Oriented X3, Speech NL, Gait NLENTAtraumatic, Airway patent, Mucous membranes moist, Ext aud canal NL, Gums/dentition NL, Portions of this section were scribed by Jeannette Hatfield on 08/14/18 at 2100 Interpretation Diagnostics Lab Results InterpretationResults Portions of this section were scribed by Jeannette Hatfield on 08/14/18 at 2100 Re-Evaluation MDM ED CourseMedication(s) OrderedMedication(s) Ordered:Electrolytic, Caloric, And Valentín Sig/Butch Start time Last Medication Dose Route Stop Time Status Admin Sodium Chloride 1,000 ML X1ED STA 08/15 1915 DC 08/14 IV 08/14 Gastrointestinal Drugs Sig/Butch Start time Last Medication Dose Route Stop Time Status Admin Ondansetron HCl 4 MG X1ED STA 08/14 1946 DC 08/14 IV 08/14 Portions of this section were scribed by Jeannette Hatfield on 08/14/18 at 2055 Patient Discharge Departure Vital Signs/ConditionVital Signs Supervising Physician Note MidLv/Doc Saw Pt 1I have seen and evaluated this patient and agree with the nurse practitioner or physician assistant fitness manager's documentation and assessment. Documentation of one or moreelements of my assessment are included in the medical record. Scribe StatementJeannette Hatfield, 08/14/182055, scribing for and in the presence of [Dr. Giraldo].Signed By: Jeannette Hatfield, 08/14/182055 Provider Scribed StatementI personally performed the services described in this documentation and reviewedthe documentation that was dictated to the scribe(s) in my presence, and it accurately records my words and actions. Bri Giraldo, 08/14/18 Portions of this section were scribed by Jeannette Hatfield on 08/14/18 at 2100 at 2112 at 0310 RPT #: [id number] OF REPORTEDEmergency department [id number]:47:00L.[id number] ilable for patient [id number]:11:00 HCAPM
[2023-01-19 18:55] LABS: Absolute Lymphocytes (CBC) 2.4 K/uL (0.7-4.9); Hematocrit 41.6 % (39.6-49.0); Lymphocytes % 38.7 % (15.3-44.8); MCV 90.2 fL (80-100); MPV 6.4 fL (7.6-11.3); Platelets 314 thou/uL (152-406); RBC Red Blood Cell Count 4.61 M/uL (4.33-5.43)
[2023-01-19 19:04] LABS: Protime INR 1.26
[2023-01-19] MEDS ORDERED: NA CHLORIDE 0.9% 100 ML ONE (19:13)
[2023-01-19] MEDS ORDERED: LEVETIRACETAM 500 MG/5 ML VIAL IV ONE (19:13)
[2023-01-19] MEDS ORDERED: NA CHLORIDE 0.9% 1,000 ML ONE (19:13)
[2023-01-19 19:18] LABS: ALT/SGPT 48 U/L (16-61); AST/SGOT 23 U/L (15-37); Albumin 3.3 g/dL (3.4-5.0); Alkaline Phosphatase 77 U/L (45-117); BUN Blood Urea Nitrogen 9 mg/dL (7-18); Bicarbonate 28 mEq/L (21-32); Bilirubin Direct 0.1 mg/dL (0-0.2); Bilirubin Indirect, Calculated 0.4 mg/dL (0.2-0.8); Bilirubin Total 0.5 mg/dL (0.2-1.0); Glomerular Filtration Rate 84 ml/min (=/>90); Glucose Level 96 mg/dL (74-106); Potassium 3.7 mEq/L (3.5-5.1); Protein, Total 8.5 g/dL (6.4-8.2); Sodium Level 140 mEq/L (136-145)
--- NOTE | 2023-01-19 19:26 | RAD REPORT ---
EXAM DESCRIPTION: CT - Head Brain Wo Cont - 01/19/2023 7:11 pm CLINICAL HISTORY: Seizure COMPARISON: 2021 TECHNIQUE: Computed axial tomography of the head was obtained. IV contrast was not requested. All CT scans are performed using dose optimization technique as appropriate and may include automated exposure control or mA/KV adjustment according to patient size. FINDINGS: An intracranial bleed is not seen The ventricles are normal in caliber No significant hypodense areas within the brain visualized No extra-axial fluid collection is noted. Fluid within the sinuses/ mastoids is not seen IMPRESSION: No acute intracranial abnormality is seen If patient's symptoms persist MRI of the brain would be recommended
[2023-01-19 21:19] LABS: Specific Gravity 1.026 (1.005-1.030); Urine Bacteria None Seen /HPF (<20); Urine Bilirubin NEGATIVE (Negative); Urine Blood Negative (Negative); Urine Clarity Clear (Clear); Urine Color Yellow (Yellow); Urine Crystals Unidentified Few /HPF (None Seen); Urine Glucose NEGATIVE (Negative); Urine Mucus 2+ /HPF (None Seen); Urine Protein TRACE (Negative); Urine RBC <5 /HPF (None Seen); Urine Urobilinogen Normal (Normal)
[2023-01-19 21:31] LABS: Barbiturates NEGATIVE (NEGATIVE); Benzodiazepines POSITIVE (NEGATIVE); Cocaine NEGATIVE (NEGATIVE); METHAMPHETAM NEGATIVE (NEGATIVE); Methadone NEGATIVE (NEGATIVE); Opiates NEGATIVE (NEGATIVE); Phencyclidine NEGATIVE (NEGATIVE); THC Cannibis NEGATIVE (NEGATIVE)
--- NOTE | 2023-01-19 21:32 | ER ---
Nurse's Notes [facility] Name: Poncho Roque Age: 22 yrs Sex: Male : 2000 Arrival Date: 01/19/2023 Time: 18:34 Bed 3 Private MD: Diagnosis: Other seizures Presentation: 01/19 18:36 Chief complaint: EMS states: Bystander called 911 for seizure, seizure activity noted hb in route to ED. VS WNL, Versed 5mg IM administered tp 20g LFA HAND SLITTER. Coronavirus screen: At this time, the client does not indicate any symptoms associated with coronavirus-19. Ebola Screen: No symptoms or risks identified at this time. Initial Sepsis Screen: Does the patient meet any 2 criteria? No. Patient's initial sepsis screen is negative. Does the patient have a suspected source of infection? No. Patient's initial sepsis screen is negative. Risk Assessment: Do you want to hurt yourself or someone else? Patient reports no desire to harm self or others. Onset of symptoms was January 19, 2023. 18:36 Method Of Arrival: EMS: [facility] hb 18:36 Acuity: LEIA 2 hb Historical: - Allergies: 18:38 SEAFOOD; hb 18:38 Shellfish Containing Products; hb - Home Meds: 18:38 epi pen [Active]; hb - PMHx: 18:38 Anxiety; hb - Immunization history:: Adult Immunizations unknown. - Social history:: Smoking status: unknown. Screenin:39 [facility] ED Fall Risk Assessment (Adult) History of falling in the last 3 months, lg3 including since admission No falls in past 3 months (0 pts). Abuse screen: Denies threats or abuse. Denies injuries from another. Nutritional screening: No deficits noted. Tuberculosis screening: No symptoms or risk factors identified. Assessment: 19:39 General: Appears in no apparent distress. comfortable, Behavior is calm, cooperative. lg3 Pain: Denies pain. Neuro: No deficits noted. Raman Agitation-Sedation Scale (RASS): 0 - Alert and Calm Level of Consciousness is awake, alert, obeys commands, Oriented to person, place, time, situation. Cardiovascular: No deficits noted. Denies chest pain, shortness of breath, Capillary refill < 3 seconds Clubbing of nail beds is absent JVD is absent Rhythm is sinus rhythm. Respiratory: No deficits noted. Airway is patent Trachea midline Respiratory effort is even, unlabored, Respiratory pattern is regular, symmetrical. GI: No deficits noted. No signs and/or symptoms were reported involving the gastrointestinal system. Abdomen is round non-distended, obese. : No deficits noted. No signs and/or symptoms were reported regarding the genitourinary system. EENT: No deficits noted. No signs and/or symptoms were reported regarding the EENT system. Derm: No deficits noted. No signs and/or symptoms reported regarding the dermatologic system. Skin is intact, is healthy with good turgor, Skin is dry, Skin is normal, Skin temperature is warm. Musculoskeletal: No deficits noted. Circulation, motion, and sensation intact. Range of motion: intact in all extremities. 20:57 Reassessment: Patient appears in no apparent distress at this time. No changes from lg3 previously documented assessment. Patient and/or family updated on plan of care and expected duration. Pain level reassessed. Patient is alert, oriented x 3, equal unlabored respirations, skin warm/dry/pink. Patient states symptoms have improved. 21:42 Reassessment: Patient appears in no apparent distress at this time. Patient and/or lg3 family updated on plan of care and expected duration. Pain level reassessed. Patient is alert, oriented x 3, equal unlabored respirations, skin warm/dry/pink. Patient denies pain at this time. Patient states feeling better. Patient states symptoms have improved. Vital Signs: 18:36 BP 149 / 78; Pulse 109; Resp 18; Temp 98.3; Pulse Ox 98% on R/A; hb 19:39 BP 141 / 82; Pulse 91; Resp 17 S; Pulse Ox 99% on R/A; lg3 21:42 BP 138 / 1; Pulse 88; Resp 18 S; Pulse Ox 99% on R/A; lg3 Tin Coma Score: 21:43 Eye Response: spontaneous(4). Motor Response: obeys commands(6). Verbal Response: lg3 oriented(5). Total: 15. ED Course: 18:35 Patient arrived in ED. hb 18:37 Tariq Ferrer PA is PHCP. cp 18:37 Cesario Rivas MD is Attending Physician. cp 18:38 Triage completed. hb 18:39 Arm band placed on. hb 18:49 Maintain EMS IV. Dressing intact. Good blood return noted. Site clean \T\ dry. Gauge \T\ hb site: 20G LFA. 18:50 Acetaminophen Sent. hb 18:50 Basic Metabolic Panel Sent. hb 18:50 CBC with Diff Sent. hb 18:50 ETOH Level Sent. hb 18:50 Hepatic Function Sent. hb 18:50 PT-INR Sent. hb 18:50 Ptt, Activated Sent. hb 18:50 Salicylate Sent. hb 18:50 Urinalysis w/ reflexes Sent. hb 18:51 Patient has correct armband on for positive identification. hb 19:13 CT Head Brain wo Cont In Process Unspecified. EDMS 19:39 Placed in gown. Bed in low position. Call light in reach. Side rails up X2. Seizure lg3 precautions initiated. Client placed on continuous cardiac and pulse oximetry monitoring. NIBP monitoring applied. mixed crop farmer on. Door closed. Noise minimized. Warm blanket given. Family accompanied patient. 19:39 Patient maintains SpO2 saturation greater than 95% on room air. lg3 21:29 Janie Olivo RN is Primary Nurse. lg3 21:31 John Navarrete MD is Referral Physician. cp 21:43 No provider procedures requiring assistance completed. IV discontinued, intact, lg3 bleeding controlled, No redness/swelling at site. Pressure dressing applied. Administered Medications: 18:36 Drug: Ativan IVP 2 mg IVP once Route: IVP; Site: left forearm; hb 21:44 Follow up: Response: No adverse reaction lg3 19:00 Drug: NS 0.9% IV 1000 ml IV at 1 bolus Per protocol; 1000 mL bolus Route: IV; Rate: 1 rs5 bolus; Site: right antecubital; 21:44 Follow up: IV Status: Completed infusion; IV Intake: 1000ml lg3 19:16 Drug: Keppra IV 1000 mg IV at calculated rate once Route: IV; Rate: calculated rate; lg3 Site: left antecubital; 21:44 Follow up: Response: No adverse reaction; IV Status: Completed infusion lg3 Medication: 21:43 VIS not applicable for this client. lg3 Intake: 21:44 IV: 1000ml; Total: 1000ml. lg3 Outcome: 21:32 Discharge ordered by . cp 21:43 Discharged to home ambulatory, with family, lg3 21:43 Condition: stable 21:43 Discharge instructions given to patient, Instructed on discharge instructions, follow up and referral plans. medication usage, Demonstrated understanding of instructions, follow-up care, medications, Prescriptions given X 1, 21:44 Patient left the ED. lg3 Signatures: Dispatcher [employer] EDMS Tariq Ferrer PA PA cp Baxter, Heather, RN RN hb Able, Lacie RN RN lg3 Stephon House RN RN rs5
--- NOTE | 2023-01-19 21:32 | EDPHYS ---
Physician Documentation [facility] Name: Poncho Roque Age: 22 yrs Sex: Male : 2000 Arrival Date: 01/19/2023 Time: 18:34 Bed 3 Private MD: ED Physician Cesario Rivas HPI: 01/19 18:45 This 22 yrs old Black Male presents to ER via EMS with complaints of Seizure. cp 18:45 The patient presents after having a single isolated seizure, that lasted an unknown cp period of time. 18:45 Character of seizure(s): Loss of consciousness: the patient experienced loss of cp consciousness, Incontinence: none. 18:45 Seizure Hx: yes, unknown seizure medication. Associated injury: The patient did not cp suffer any apparent associated injury. EMS care: versed, IM, 5 mg(s). Current symptoms: confusion, decreased level of consciousness, is arousable but tired. Historical: - Allergies: 18:38 SEAFOOD; hb 18:38 Shellfish Containing Products; hb - Home Meds: 18:38 epi pen [Active]; hb - PMHx: 18:38 Anxiety; hb - Immunization history:: Adult Immunizations unknown. - Social history:: Smoking status: unknown. ROS: 18:50 Neuro: Positive for history of seizure, cp 18:50 Constitutional: Negative for fever, cp 18:50 Unable to obtain ROS due to altered mental status, Exam: 18:55 Constitutional: The patient appears in no acute distress, non-diaphoretic, non-toxic, cp well developed, well nourished, unkempt, 18:55 Head/Face: Normocephalic, atraumatic. cp 18:55 Eyes: Periorbital structures: appear normal, Pupils: equal, round, and reactive to light and accomodation, Conjunctiva: normal, no exudate, no injection, Sclera: no appreciated abnormality, Lids and lashes: appear normal, bilaterally, 18:55 ENT: External ear(s): are unremarkable, Ear canal(s): are normal, clear, TM's: dullness, bilaterally, Nose: is normal, Mouth: Lips: moist, Oral mucosa: pink and intact, moist, Posterior pharynx: is normal, airway is patent, no erythema, no exudate, 18:55 Neck: ROM/movement: is normal, is supple, without pain, no range of motions limitations, no meningismus, 18:55 Chest/axilla: Inspection: normal, Palpation: is normal, no crepitus, no tenderness, 18:55 Cardiovascular: Rate: tachycardic, Rhythm: regular, 18:55 Respiratory: the patient does not display signs of respiratory distress, Respirations: normal, no use of accessory muscles, no retractions, labored breathing, is not present, Breath sounds: are clear throughout, no decreased breath sounds, no stridor, no wheezing, 18:55 Abdomen/GI: Inspection: abdomen appears normal, Palpation: abdomen is soft and non-tender, in all quadrants, 18:55 Musculoskeletal/extremity: Extremities: all appear grossly normal, with no appreciated pain with palpation, 18:55 Skin: rash a moderate rash is noted, rash can be described as excoriated, plaque-like, on the abdomen, 18:55 Neuro: Mentation: somnolent, responsive to pain, Motor: moves all fours, no focal deficits observed, 19:40 ECG was reviewed by the Attending Physician. Vital Signs: 18:36 BP 149 / 78; Pulse 109; Resp 18; Temp 98.3; Pulse Ox 98% on R/A; hb 19:39 BP 141 / 82; Pulse 91; Resp 17 S; Pulse Ox 99% on R/A; lg3 21:42 BP 138 / 1; Pulse 88; Resp 18 S; Pulse Ox 99% on R/A; lg3 Morgan Coma Score: 21:43 Eye Response: spontaneous(4). Motor Response: obeys commands(6). Verbal Response: lg3 oriented(5). Total: 15. MDM: 18:37 Patient medically screened. 19:00 Differential diagnosis: cerebral vascular accident, drug overdose, cardiac arrhythmia, cp seizure. 21:30 Data reviewed: vital signs, nurses notes, lab test result(s), EKG, radiologic studies, cp CT scan, and as a result, I will discharge patient. 21:30 I considered the following discharge prescriptions or medication management in the emergency department Medications were administered in the Emergency Department. See MAR. Counseling: I had a detailed discussion with the patient and/or guardian regarding the historical points, exam findings, and any diagnostic results supporting the discharge/admit diagnosis, lab results, radiology results, the need for outpatient follow up, a neurologist, to return to the emergency department if symptoms worsen or persist or if there are any questions or concerns that arise at home. Response to treatment: the patient's symptoms have markedly improved after treatment, and as a result, I will discharge patient. ED course: Patient alert, talking on phone. Will discharge to home for continued monitoring. 01/19 18:37 Order name: Acetaminophen; Complete Time: 19:42 01/19 18:37 Order name: Basic Metabolic Panel; Complete Time: 19:42 01/19 20:07 Interpretation: Normal except: GFR 84. 01/19 18:37 Order name: CBC with Diff; Complete Time: 19:42 01/19 20:07 Interpretation: Normal except: MPV 6.4; EOSINOPHIL % 5.9. 01/19 18:37 Order name: ETOH Level; Complete Time: 19:42 01/19 18:37 Order name: Hepatic Function; Complete Time: 19:42 01/19 20:29 Interpretation: Normal except: TP 8.5; ALB 3.3; GLOB 5.2; A/G 0.6. 01/19 18:37 Order name: PT-INR; Complete Time: 19:42 01/19 18:37 Order name: Ptt, Activated; Complete Time: 19:42 01/19 18:37 Order name: Salicylate; Complete Time: 19:42 01/19 18:37 Order name: Urinalysis w/ reflexes; Complete Time: 21:24 01/19 21:24 Interpretation: Reviewed. 01/19 18:37 Order name: Urine Drug Screen 01/19 18:51 Order name: CT Head Brain wo Cont; Complete Time: 19:42 01/19 19:42 Interpretation: Report reviewed. 01/19 18:37 Order name: EKG; Complete Time: 18:38 01/19 18:37 Order name: EKG - Nurse/Tech; Complete Time: 19:39 01/19 18:37 Order name: IV Saline Lock; Complete Time: 18:50 01/19 18:37 Order name: Labs collected and sent; Complete Time: 18:50 01/19 18:37 Order name: Suicide Screening ([place]); Complete Time: 19:25 cp EC:40 Rate is 92 beats/min. Rhythm is regular. VA interval is normal. QRS interval is normal. cp QT interval is normal. T waves are Inverted in lead aVR. Interpreted by me. Reviewed by me. Administered Medications: 18:36 Drug: Ativan IVP 2 mg IVP once Route: IVP; Site: left forearm; hb 21:44 Follow up: Response: No adverse reaction lg3 19:00 Drug: NS 0.9% IV 1000 ml IV at 1 bolus Per protocol; 1000 mL bolus Route: IV; Rate: 1 rs5 bolus; Site: right antecubital; 21:44 Follow up: IV Status: Completed infusion; IV Intake: 1000ml lg3 19:16 Drug: Keppra IV 1000 mg IV at calculated rate once Route: IV; Rate: calculated rate; lg3 Site: left antecubital; 21:44 Follow up: Response: No adverse reaction; IV Status: Completed infusion lg3 Disposition: 01/20 08:59 Co-signature as Attending Physician, Cesario Rivas MD I reviewed the patient's care rn provided by the Advanced Practice Provider and agree with the diagnosis and treatment plan. Disposition Summary: 01/19/23 21:32 Discharge Ordered Notes: Location: Home cp Problem: chronic cp Symptoms: have improved cp Condition: Stable cp Diagnosis - Other seizures cp Followup: cp - With: John Navarrete MD - When: 2 - 3 days - Reason: Recheck today's complaints Discharge Instructions: - Discharge Summary Sheet cp - Seizure, Adult cp Forms: - Medication Reconciliation Form cp - Thank You Letter cp - Antibiotic Education cp - Prescription Opioid Use cp - Patient Portal Instructions cp - Leadership Thank You Letter cp Prescriptions: - Keppra 500 mg Oral Tablet - take 1 tablet ORAL route every 12 hours; 20 tablet; Refills: 0, Product cp Selection Permitted Signatures: Dispatcher [employer] EDCesario Aden MD MD rn Page, Corey, PA PA cp Fern Deleon RN ROBERTO Janie Olivo RN RN lg3 Stpehon House RN RN rs5
[2023-01-19 21:48] VITALS: TEMP 98.3
[2023-01-19 21:50] VITALS: BP 138/1; O2SAT 99
--- NOTE | 2023-01-20 13:41 | EKG ---
Test Date: 2023-01-19 Test Time: 19:36:17 Physiotherapy Assistant: LA MEASUREMENT RESULTS: Intervals: Rate: 92 IL: 136 QRSD: 82 QT: 348 QTc: 430 [place]: P: 34 IL: 136 QRS: 80 T: 25 INTERPRETIVE STATEMENTS: Normal sinus rhythm Normal ECG Compared to ECG 06/09/2019 22:47:19 No significant changes Electronically Signed On 01-20-23 13:39:21 [employer] WORKER by Phoenix Dickey
== END 2023-01-19 21:44 | disposition home or self-care (01) ==
LOC: ER 18:34
DX: R56.9 Unspecified convulsions (principal)
CPT/HCPCS: 36415; 70450; 80048; 80076; 80143; 80179; 80307; 81001; 82077; 85025; 85610; 85730; 93005; 96365; 96366; 96375; 99285; J1953; J7030

== ENCOUNTER → 2023-02-23 | Emergency (ER) | payer SELFPAY ==
[~2023-02-23] MED LIST: LEVETIRACETAM 500 MG/5 ML VIAL IV ONE; NA CHLORIDE 0.9% 50 ML ONE
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
[2023-02-23 20:53] LABS: Absolute Lymphocytes (CBC) 2.4 K/uL (0.7-4.9); Hematocrit 41.5 % (39.6-49.0); Lymphocytes % 40.9 % (15.3-44.8); MCV 88.7 fL (80-100); Platelets 260 thou/uL (152-406); RBC Red Blood Cell Count 4.67 M/uL (4.33-5.43)
[2023-02-23 21:10] LABS: Albumin 3.5 g/dL (3.4-5.0); Bilirubin Total 0.7 mg/dL (0.2-1.0); Potassium 3.9 mEq/L (3.5-5.1)
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
--- NOTE | 2023-02-23 21:21 | EDPHYS ---
Physician Documentation [facility] Name: Poncho Roque Age: 22 yrs Sex: Male : 2000 Arrival Date: 02/23/2023 Time: 20:31 Bed 15 Private MD: ED Physician Gianni Gavin HPI: 02/23 20:35 This 22 yrs old Black Male presents to ER via Unassigned with complaints of seizure. ec2 20:35 Patient arrives today due to concern for seizure episode. Patient had a witnessed ec2 seizure, has a history of seizures, is supposed to be on Keppra however stopped taking this several weeks ago as he no longer wanted to take medication. Reports any head injuries, denies any illnesses, denies any other concerns. . Historical: - Allergies: 20:33 SEAFOOD; km8 20:33 Shellfish Containing Products; km8 - Home Meds: 20:33 Keppra Oral [Active]; km8 - PMHx: 20:33 Anxiety; Seizure; km8 - Immunization history:: Client reports receiving the 2nd dose of the Covid vaccine, Flu vaccine is not up to date. - Social history:: Smoking status: Patient reports the use of cigarette tobacco products, Patient uses alcohol, occasionally. Patient/guardian denies using street drugs. ROS: 20:35 Constitutional: as per hpi ec2 Exam: 20:35 Constitutional: GEN: NAD Head: atraumatic Eyes: EOMI Ears: External ears are ec2 normal. CV: regular rate LUNGS: no respiratory distress ABD: non-distended SKIN: no evidence of rashes MSK: no evidence of trauma NEURO: moves all extremities equally, cranial nerves II through XII intact, strength intact throughout, sensation intact throughout Vital Signs: 20:33 BP 118 / 72; Pulse 87; Resp 20; Temp 97.6(TE); Pulse Ox 100% on R/A; Weight 90.72 kg 8 (R); Height 5 ft. 11 in. (R); Pain 10/10; 21:00 BP 105 / 67; Pulse 70; Resp 16; Pulse Ox 99% on R/A; km8 20:33 Body Mass Index 27.89 (90.72 kg, 180.34 cm) [facility] 20:33 Pain Scale: Adult [facility] Tin Coma Score: 20:33 Eye Response: spontaneous(4). Motor Response: obeys commands(6). Verbal Response: km8 oriented(5). Total: 15. MDM: 20:34 Patient medically screened. ec2 20:35 Data reviewed: vital signs. ED course: Patient with history of seizures arrives today ec2 for seizure episode. Examination remarkable for neuro intact individual is otherwise in no acute distress with reassuring examination. Will obtain basic lab work, load with Keppra and reassess the patient. Suspect that the patient's medication noncompliance is what prompted today's episode. Low suspicion for intracranial mass or brain bleed given the patient's well appearance and neuro intact status. According will defer CT imaging of the head.. 21:08 ED course: CBC is unremarkable.. ec2 21:13 ED course: Metabolic profile is reassuring. On reassessment patient remains ec2 well-appearing in no acute distress. Will discharge home. Return precautions given.. 02/23 20:34 Order name: CBC with Diff; Complete Time: 21:08 ec2 02/23 20:34 Order name: CMP; Complete Time: 21:12 ec2 Administered Medications: 20:47 Drug: Keppra IV 1000 mg IV at bolus once Route: IV; Rate: bolus; Site: right km8 antecubital; 21:14 Follow up: IV Status: Completed infusion; IV Intake: 100ml km8 Disposition Summary: 02/23/23 21:19 Discharge Ordered Notes: Location: Home ec2 Condition: Stable ec2 Diagnosis - Other seizures ec2 Followup: ec2 - With: Private Physician - When: - Reason: Recheck today's complaints Discharge Instructions: - Discharge Summary Sheet ec2 - Seizure, Adult ec2 Forms: - Medication Reconciliation Form ec2 - Thank You Letter ec2 - Antibiotic Education ec2 - Prescription Opioid Use ec2 - Patient Portal Instructions ec2 - Leadership Thank You Letter ec2 Prescriptions: - Keppra 500 mg Oral tablet - take 1 tablet ORAL route every 12 hours; 30 tablet; Refills: 0, Product ec2 Selection Permitted Signatures: Dispatcher [employer] EDGianni Tapia MD MD ec2 Zelda Andrade RN RN km8
[2023-02-23 23:14] VITALS: BP 105/67; TEMP 97.6; O2SAT 99
== END ==
LOC: ER 20:31
DX: R56.9 Unspecified convulsions (principal)
CPT/HCPCS: 36415; 80053; 85025; 96365; 99285; J1953